=== PATIENT | female | born 1965 | race Caucasian/White ===

== ENCOUNTER 2019-11-28 16:15 | Emergency (ER) | payer OTHER, SELFPAY ==
--- NOTE | ~2019-11-28 | XR_ITS ---
XR shoulder LT min 2V DATE: 11/28/2019 16:53 INDICATION: Left shoulder pain TECHNIQUE: 4 views COMPARISON: None FINDINGS: No fracture or dislocation, periosteal reaction or bone destruction or abnormal soft tissue calcification. If clinically, glenohumeral joints are intact. IMPRESSION: Negative left shoulder Reviewed, dictated and finalized at location A. IMPRESSION: Negative left shoulder
--- NOTE | 2019-11-28 16:22 | ECG_ITS ---
Measurements Intervals [place] Rate: 77 P: 76 [place]: 132 QRS: 82 QRSD: 113 T: 70 QT: 390 QTc: 442 Interpretive Statements SINUS RHYTHM WITH SINUS ARRHYTHMIA INCOMPLETE RIGHT BUNDLE BRANCH BLOCK BORDERLINE ECG Electronically Signed On 11-29-2019 7:20:40 CDT by Rico Lamas D.O.
[2019-11-28 16:37] VITALS: BP 152/98; PULSE 92; RESP 20; TEMP 37.3; O2SAT 98
--- NOTE | 2019-11-28 16:39 | ED.EXTPRO ---
HPI - Extremity Problem General Chief complaint: Extremity Problem,Nontraumatic Stated complaint: pain on left side Time Seen by Provider: 11/28/19 16:18 Source: patient Mode of arrival: ambulatory Limitations: no limitations History of Present Illness HPI Narrative: 54 year old female presents to urgent care with complaints of left shoulder pain and decreased ROM X 1 week. Patient denies injury. Patient reports that the pain does radiate in to her upper back at times. Patient reports that the pain is worse with movement, coughing or deep breathing. Patient has been taking OTC ALeve with minimal relief. Patient denies previous injury to shoulder. Patient denies chest pains, SOB, numbness, tingling, headache, blurred vision or dizziness MD Complaint: extremity pain Onset (ago): week(s) (1) Pain Consistency: constant Location: left and upper extremity (shoulder) Quality: constant Radiation: none Relieving factors: nothing Exacerbating factors: range of motion Associated symptoms: denies other symptoms Related Data Home Medications Medication Instructions Recorded Confirmed alprazolam 1 mg DAILY 11/28/19 11/28/19 phentermine 37.5 mg DAILY 11/28/19 11/28/19 Allergies Allergy/AdvReac Type Severity Reaction Status Date / Time No Known Allergies Allergy Unknown NONE Verified 11/28/19 16:21 Review of Systems Review of Systems: All systems reviewed & are unremarkable except as noted in HPI and below Constitutional: Constitutional: Denies chills, Denies fatigue, Denies fever(s) and Denies weakness ENT: Denies dysphagia, Denies vertigo, Denies dizziness and Denies sore throat Cardiovascular: Cardiovascular: Denies chest pain, Denies rapid heart rate and Denies slow heart rate Respiratory: Respiratory: Denies cough, Denies dyspnea and Denies wheezing Gastrointestinal: Gastrointestinal: Denies abdominal pain, Denies diarrhea, Denies nausea and Denies vomiting Musculoskeletal: Musculoskeletal: Reports as per HPI Comments: left shoulder pain and decreased ROM Integumentary/Breasts: Skin/Breast: Denies rash Neurologic: Denies vertigo, Denies dizziness, Denies syncope and Denies focal weakness Endocrine: Endocrine: Denies fatigue PMFSH Social History Social History Gender identity (if verbalized by the patient): Female Exam Const: General: healthy appearing, no acute distress and alert Orientation/consciousness: patient oriented x3 Neck: Neck: normal visual inspection and no lymphadenopathy Resp: Effort & Inspection: normal respiratory effort, not labored and not tachypneic Auscultation: clear to auscultation bilaterally, no rhonchi and no wheezes Cardio: Rate: regular rate, not bradycardic and not tachycardic Rhythm: regular rhythm and regular rhythm Heart sounds: no murmurs Back/Spine/Pelvis: Back: no CVA tenderness Skin: General skin exam: normal color Rashes: no rashes Neuro: General: patient oriented x3, moves all extremities, no meningeal signs, no focal motor deficits and CN's II-XI intact bilaterally Speech: normal speech Gait exam (Neuro): Normal gait present Extrem: General: normal to inspection and no pedal edema Other: pain noted upon palpation to anterior and posterior left shoulder; decreased ROM noted on examination. Hand grasps equal and strong Psych: Mental Status: mental status grossly normal Affect: normal affect Attitude: cooperative Thought content: Yes Normal thought content present Course Vital Signs Vital signs: Vital Signs Temperature 37.3 C 11/28/19 16:37 Pulse Rate 92 11/28/19 16:37 Respiratory Rate 20 11/28/19 16:37 Blood Pressure 152/98 H 11/28/19 16:37 Pulse Oximetry 98 11/28/19 16:37 Temperature 37.3 C 11/28/19 16:37 Pulse Rate 92 11/28/19 16:37 Respiratory Rate 20 11/28/19 16:37 Blood Pressure 152/98 H 11/28/19 16:37 Pulse Oximetry 98 11/28/19 16:37 MDM - Extremity (Nontr
== END 2019-11-28 17:14 | disposition home or self-care (01) ==
PROVIDERS: Emergency Provider Nurse Practitioner Family; PCP Family Medicine
DX: M25.512 Pain in left shoulder (principal); I45.10 Unspecified right bundle-branch block
CPT/HCPCS: 73030; 93005; 99213; A4565; G0463

== ENCOUNTER 2020-11-27 14:53 | Emergency (ER) | payer SELFPAY ==
[2020-11-27 15:36] VITALS: BP 130/90; PULSE 97; RESP 18; TEMP 37.7; O2SAT 100
--- NOTE | 2020-11-27 16:33 | ED.EYEPROB ---
HPI - Eye Problem General Chief complaint: Eye Problems Stated complaint: eye problems Source: patient and RN notes reviewed Limitations: no limitations History of Present Illness HPI Narrative: The vaccinated patient, a [employer] employee, presents with flu-like symptoms. Patient states she has 1/2-week history of fever to 101.6, myalgias, resolving emesis x1/day followed by R >>L eye redness and discharge today. No photophobia, injury, foreign body, contact lens use ; no sputum changes, CP, wheezing/sneezing, loss of taste/smell, S OB. Symptoms are mild, worse upon awakening this morning, unrelieved with all amoxicillin she had from dental issues. Related Data Home Medications Medication Instructions Recorded Confirmed alprazolam 1 mg DAILY 11/28/19 11/28/19 phentermine 37.5 mg DAILY 11/28/19 11/28/19 Allergies Allergy/AdvReac Type Severity Reaction Status Date / Time No Known Allergies Allergy Unknown NONE Verified 11/28/19 16:21 Review of Systems Review of Systems: General/Constitutional: No weight loss, REPORTS fever Eyes: REPORTS: Redness,discharge Ears/Nose/Throat: No: Epistaxis,ear discharge Respiratory: Denies: Hemoptysis Gastrointestinal: No Vomiting, Bleeding-rectal Hematologic: Denies: Petechiae/Purpura PMFSH Social History Social History Gender identity (if verbalized by the patient): Female Comments At time of signature, agree with nursing past medical, surgical, social and family history. There is no relevant family history pertinent to the presenting complaint Exam Narrative: General Appearance: Well appearing, Well nourished EYE: PERRLA, Conjunctiva injected right greater than left ENT: Auditory canal normal, TM normal, Rhinorrhea, Mucousal erythema Mouth/Throat: MM moist, Uvula midline, Pharyngeal erythema , Supple, Respiratory: No respiratory distress, Breath sounds equal, Clear to auscultation Cardiovascular: RRR, No JVD Musculoskeletal: Non tender, Normal strength, Warm, Dry Neurological: A&O x3, Normal affect Course Vital Signs Vital signs: Vital Signs Temperature 99.9 F H 11/27/20 15:36 Pulse Rate 97 11/27/20 15:36 Respiratory Rate 18 11/27/20 15:36 Blood Pressure 130/90 11/27/20 15:36 Pulse Oximetry 100 11/27/20 15:36 Temperature 99.9 F H 11/27/20 15:36 Pulse Rate 97 11/27/20 15:36 Respiratory Rate 18 11/27/20 15:36 Blood Pressure 130/90 11/27/20 15:36 Pulse Oximetry 100 11/27/20 15:36 MDM - Eye Problem Lab Data Labs: Lab Results 11/27/20 Range/Units 15:46 POC SARS CoV-2 Ag Negative (Negative) Discharge Plan Discharge Clinical Impression: Influenza-like illness Patient Disposition: Home, Self-Care Condition: Stable Instructions: Conjunctivitis (ED) Additional Instructions: You may try OTC preparations for your nose like Flonase, for your eyes like Patanol ,or antihistamines like Claritin, etc. Prescriptions: New sulfacetamide sodium [Bleph-10] 10 % drops 2 drp EACH EYE Q4H Qty: 5 RF: 0 codeine-guaifenesin 10-100 mg/5 mL liquid 7.5 ml PO Q6H PRN (Reason: cough) Qty: 118 RF: 0 No Action alprazolam 1 mg tablet 1 mg DAILY RF: 0 phentermine 37.5 mg tablet 37.5 mg DAILY RF: 0 meloxicam 7.5 mg tablet 7.5 mg PO BID PRN (Reason: pain) Qty: 14 RF: 0 methocarbamol 500 mg tablet 500 mg PO TID PRN (Reason: pain) Qty: 20 RF: 0 Other Ambulatory Orders: SARS-CoV-2 RNA, Qual RT-PCR (Routine) Location: Determined by Patient Ordered By: Arpit Cutler Follow-up/Referrals: Nadine,Vanessa Hackett MD [Primary Care Provider] - Stand Alone Forms: Work/School Release IP
== END 2020-11-27 16:47 | disposition home or self-care (01) ==
PROVIDERS: Emergency Provider Emergency Medicine; PCP Family Medicine
DX: J11.1 Influenza due to unidentified influenza virus with other respiratory manifestations (principal); Z20.822 Contact with and (suspected) exposure to COVID-19
CPT/HCPCS: 87426; 99213; C9803; G0463

== ENCOUNTER → 2021-05-02 08:04 | Outpatient (CLI) | payer OTHER, SELFPAY ==
[2021-05-02 21:10] LABS: SARS-CoV-2 RNA PCR Positive
== END ==
PROVIDERS: PCP Family Medicine; Visit Provider Family Medicine
DX: U07.1 COVID-19 (principal)
CPT/HCPCS: C9803; U0003; U0005

== ENCOUNTER → 2021-06-26 01:58 | Outpatient (CLI) | payer OTHER, SELFPAY ==
[2021-06-26 11:59] LABS: SARS-CoV-2 RNA PCR Negative
== END ==
PROVIDERS: PCP Family Medicine; Visit Provider Family Medicine
DX: R43.2 Parageusia (principal); Z20.822 Contact with and (suspected) exposure to COVID-19
CPT/HCPCS: C9803; U0003; U0005

== ENCOUNTER 2024-02-18 06:54 | Emergency (ER) | payer OTHER, SELFPAY ==
[2024-02-18 07:01] VITALS: BP 132/82; PULSE 111; RESP 15; TEMP 36.6; O2SAT 98
[2024-02-18] MEDS: diazePAM INJ (*CRX) 10 MG/2 ML SYRINGE 2.5 MG IM (07:43)
[2024-02-18] MEDS: KETOROLAC 30 MG/ML VIAL (*BKC) 15 MG IM (07:43)
[2024-02-18] MEDS: predniSONE 20 MG TABLET 40 MG PO (07:44)
--- NOTE | 2024-02-18 07:53 | ED.LOWEXIN ---
HPI - Extremity Injury (Lower) General Chief Complaint: Extremity Injury, Lower Stated Complaint: R leg pain/previous fx Time Seen by Provider: 02/18/24 07:00 History of Present Illness HPI Narrative: Patient had an ankle injury about 2 months ago and has seen orthopedic surgeon, however she has had back pain to her ankle ever since and now it is radiating up to her buttock, has tried prescribed Vicodin from her doctor without much pain relief. She is still having mostly spasms. Is scheduled with pain specialist and physical therapy. Related Data Home Medications Medication Instructions Recorded Confirmed alprazolam 1 mg tablet 1 mg DAILY 11/28/19 11/28/19 phentermine 37.5 mg tablet 37.5 mg DAILY 11/28/19 11/28/19 Allergies Allergy/AdvReac Type Severity Reaction Status Date / Time No Known Allergies Allergy Unknown NONE Verified 02/18/24 07:06 Review of Systems Review of Systems: All systems reviewed & are unremarkable except as noted in HPI and below PMFSH Social History Social History Gender identity (if verbalized by the patient): Female Exam Narrative: EXAMINATION OF ORGAN SYSTEMS/BODY AREAS: Constitutional: Vital signs per nursing GENERAL: Sad HEAD: Normal with no signs of head trauma. EYES: EOMI, conjunctiva normal ENT: Hearing grossly intact LUNGS: Nonlabored breathing. HEART: normal DP pulse ABD: [Soft], [nontender to palpation] EXT: Normal range of motion; no obvious deformity SKIN: [No rashes or lesions.] NEURO: [Alert and oriented x 3. No gross focal sensory or strength deficits.] PSYCH: Normal affect Course Vital Signs Vital signs: Vital Signs Temperature 98 F 02/18/24 07:01 Pulse Rate 111 H 02/18/24 07:01 Respiratory Rate 15 02/18/24 07:01 Blood Pressure 132/82 02/18/24 07:01 Pulse Oximetry 98 02/18/24 07:01 Oxygen Delivery Room Air 02/18/24 07:01 Temperature 98 F 02/18/24 07:01 Pulse Rate 111 H 02/18/24 07:01 Respiratory Rate 15 02/18/24 07:01 Blood Pressure 132/82 02/18/24 07:01 Pulse Oximetry 98 02/18/24 07:01 Oxygen Delivery Room Air 02/18/24 07:01 MDM - Extremity Injury (Lower) MDM Narrative Medical decision making narrative: Patient had an ankle injury about 2 months ago and has seen orthopedic surgeon, however she has had back pain to her ankle ever since and now it is radiating up to her buttock, has tried prescribed Vicodin from her doctor without much pain relief. She is still having mostly spasms. Is scheduled with pain specialist and physical therapy. on exam patient is intermittently tearful, she has normal range of motion of the entire leg, no obvious deformity, she is neurovascularly intact, she is already on narcotics without improvement so I will trial some Toradol here, muscle relaxant /Valium, steroids, and have her follow-up with her doctor on a steroid course patient agreeable to this plan. She had been having some nausea and some cane from taking some medications so I will give her some prescriptions for Zofran and Pepcid. Return precautions discussed. Patient agreeable to this plan. Discharge Plan Discharge Clinical Impression: Leg muscle spasm Patient Disposition: Home, Self-Care Condition: Stable Instructions: Leg Pain (ED) Additional Instructions: Please follow up with your doctor; you can always return for any further issues. Prescriptions: New prednisone 20 mg tablet 40 mg PO DAILY 5 Days Qty: 10 0RF famotidine 20 mg tablet 20 mg PO DAILY Qty: 30 0RF ondansetron 4 mg tablet,disintegrating 4 mg PO Q8H PRN (Reason: nausea and vomiting) Qty: 10 0RF No Action alprazolam 1 mg tablet 1 mg DAILY phentermine 37.5 mg tablet 37.5 mg DAILY meloxicam 7.5 mg tablet 7.5 mg PO BID PRN (Reason: pain) Qty: 14 0RF methocarbamol 500 mg tablet 500 mg PO TID PRN (Reason: pain) Qty: 20 0RF sulfacetamide sodium [Bleph-10] 10 % drops 2 drp EACH EYE Q4H Qty: 5 0RF codeine-guaifenesin 10-100 mg/5 mL liquid 7.5 ml PO Q6H PRN (Reason: cough) Qty: 118 0RF Follow-up/Referrals: Nadine,Vanessa Hackett MD [Non-Staff] -
[2024-02-18 07:58] VITALS: BP 117/64; PULSE 78; RESP 16; O2SAT 99
== END 2024-02-18 08:02 | disposition home or self-care (01) ==
LOC: ANHED 07:48
PROVIDERS: Emergency Provider Emergency Medicine
DX: M62.838 Other muscle spasm (principal)
CPT/HCPCS: 96372; 99284; J1885; J3360; J7512

== ENCOUNTER 2024-04-12 15:58 | Emergency (ER) | payer OTHER, SELFPAY ==
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
[2024-04-12 16:33] VITALS: BP 139/84; PULSE 106; RESP 20; TEMP 36.6; O2SAT 99
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
[2024-04-12] MEDS: CYCLOBENZAPRINE HCL 5 MG TABLET PO (16:45)
[2024-04-12] MEDS: HYDROcodone/acetaminophen (*CRX) 5-325 MG TABLET 1 TAB PO (18:42)
[2024-04-12 19:37] VITALS: BP 134/74; PULSE 96; RESP 15; TEMP 36.7; O2SAT 100
== END 2024-04-12 19:38 | disposition home or self-care (01) ==
LOC: ANHED 19:09
PROVIDERS: Emergency Provider Physician Assistant
DX: S09.90XA Unspecified injury of head, initial encounter (principal); S16.1XXA Strain of muscle, fascia and tendon at neck level, initial encounter; M51.369 Other intervertebral disc degeneration, lumbar region without mention of lumbar back pain or lower extremity pain; M50.31 Other cervical disc degeneration, high cervical region; Y04.2XXA Assault by strike against or bumped into by another person, initial encounter
CPT/HCPCS: 70450; 72125; 72128; 72131; 99284; A9270

== ENCOUNTER 2024-05-13 14:01 | Outpatient (CLI) | payer OTHER, SELFPAY ==
--- NOTE | ~2024-05-13 | XR_ITS ---
EXAMINATION: XR chest 2V 05/13/2024 14:18 INDICATION: Cough PROCEDURE: 2 view chest COMPARISON: No prior studies for comparison. FINDINGS: The lungs are clear. The cardiomediastinal silhouette is within normal limits. There are no pleural effusions. There is no pneumothorax suspected. IMPRESSION: 1: NO ACUTE CARDIOPULMONARY DISEASE. Reviewed, dictated and finalized at location A. R TRANSPORT SYSTEMS SPECIALIST
--- OUTSIDE RECORDS SUMMARY | 2024-05-13 14:46 | XMS_ITS | Continuity of Care Document ---
Author Organization [facility], [facility] Address [address] [place] [id number] Care Team Providers Care Yeast Tender Name Role Phone VICENTE CEJA Primary Care Provider [phone] VICENTE CEJA Referring Provider JOSE ANTONIO ZHU Drop Wirer Unavailable Assessment No assessment recorded. Plan of Treatment Reminders Order Date Submit Date Provider Last Modified By Organization Details Last Modified Time Details Appointments Sick/Acut e 2024 11:30A M INÉS Powers Not available Not available Not available Follow Up 30 2024 02:00P M SHEILA Ruiz Not available Not available Not available New Patient 15 2024 03:30P M Dung Solitario DPM Not available Not available Not available Lab rapid flu (A+B) 2024 025 IGNACIO [facility], [address] [facility], [place], [address], 05/13/2024 13:50:23 Referral None recorded. Procedures None recorded. Surgeries None recorded. Imaging XR, chest, 2 view [address] [facility], [facility] [address], [place], [address], 05/13/2024 14:55:35 Medication Orders triamcino lone acetonide 40 mg/mL suspensio n for injection 2024 025 Not available 05/13/2024 15:06:01 Patient TargetsNo targets recorded. Patient InstructionsNo instructions recorded. Reason for Referral None Reported. Results Created Date Observation Date Name Description Value Unit Range Abnormal Flag Note LastModifiedBy Organization Detail LastModifiedTime 05/13/19 25 05/13/2024 rapid flu (A+B) Flu A negati ve Not Available [facility] [address], [place], [address], 05/13/2024 13:05:28 Result Notes None recorded. Problems Name Problem SNOMED Code Status Onset Date Resolution Date Notes Provider Name and Address Organization Details Recorded Time Acute sinusitis 43781655 Active Not Available [facility] 3 02:17:10 Pain in toe 038090029 Active 2021 Not Available [facility] 3 02:17:10 Foot pain 46868357 Active pins SHEILA Ruiz [address], [place], [address] , [employer] 4 09:58:45 Anxiety 38105273 Active Not Available [facility] 3 02:17:10 Joint pain 89983634 Active Not Available [facility] 3 02:17:10 Skin lesion 83154245 Active Not Available [facility] 3 02:17:10 Overweigh t 057555905 Active 2022 Not Available [facility] 3 02:17:10 Diarrhea 54586900 Active 2022 Not Available [facility] 3 02:17:10 Cervical radiculop athy 21735904 Active 2022 Not Available [facility] 3 02:17:10 Carpal tunnel syndrome of right wrist 23776338262 9108 Active 2022 Not Available [facility] 3 02:17:10 Tendiniti s of right wrist region 49007480584 162482 Active 2023 SHEILA Ruiz [address], [place], [address] , [employer] 4 12:18:33 Intervert ebral disc prolapse 37447351 Active 2023 cervical C6-7 osteophyt e bulge C5-6 SHEILA Ruiz [address], [place], [address] , [place] [facility] 4 10:21:46 Neck pain 35630321 Active 2023 Rubia Garcia RN null, [place] [facility] 4 16:53:37 Contact dermatiti s of neck Active 2023 SHEILA Ruiz [address], [place], [address] , [facility] 4 14:32:36 Generaliz ed acute body pains 888046179 Active 2023 Emmanuelle Arora RN null, [place] [facility] 4 11:42:41 Upper respirato ry infection 70194804 Active 2023 SHEILA Ruiz [address], [place], [address] , [facility] 4 11:45:41 Otitis media 93124614 Active 2023 SHEILA Ruiz [address], [place], [address] , [facility] 4 11:55:43 Pain of right ankle joint 23296970883 772363 Active 2023 ALESIA Poe null, [place] [facility] 4 15:30:16 Chronic urticaria 32470758 Active 2023 SHEILA Ruiz [address], [place], [address] , [facility] 4 12:38:44 Closed fracture of right fibula [id number] 667194 Active 2023 SHEILA Ruiz [address], [place], [address] , [facility] [employer] [facility] 4 15:55:38 Eczema 70682863 Active 2023 SHEILA Ruiz [address] [facility] [place] [address], [place], [address] , [facility] [employer] [facility] 4 16:12:33 Ankle pain 283767677 Active 2024 SHEILA Ruiz [address] [facility] [facility] [address], [place], [address] , [facility] [employer] [facility] 5 15:57:05 Cough 36595771 Active 2024 INÉS Powers [address] [facility], [place] [address], [place], [address] , [facility] [employer] [facility] 5 13:05:17 Problem Notes None recorded. Procedures Surgical History Date Name Laterality Status Provider Name and Address Organization Details Recorded Time Cardiac Cath completed ALESIA Poe [facility] [employer] [facility] 01/21/2024 15:27:49 section completed ALESIA Poe [facility] 01/21/2024 15:28:01 Imaging Results None recorded. Procedure Notes None recorded. Medical Equipment None Reported. Allergies No known drug allergies Medications Name Sig Start Date Stop Date Status Note LastModified by Organization Details LastModified Time binaxnow covid-19 ag card home test kit 07/17 completed Not Available Not Available Not Available celecoxib 200 mg capsule active Not Available Not Available Not Available cyclobenz aprine 10 mg tablet TAKE 1 TABLET BY MOUTH EVERY DAY AT BEDTIME active Not Available Not Available No t Available methocarb colin 500 mg tablet 03/14 completed Not Available Not Available Not Available promethaz ine-DM 6.25 mg-15 mg/5 mL oral syrup TAKE 5 ML BY MOUTH EVERY 4 HOURS FOR 10 DAYS NEEDED 01/20 completed Not Available Not Available Not Available prednison e 10 mg tablet take 2 tabs po twice daily for 2 days , 1 tab twice dialy for 5 days , 0.5 tab twice daily for 2 days , 0.5 tab for 1 day . TAKE 2ND DOSE EVERY DAY AT NOON. a 10 day course 11/30 completed Not Available Not Available Not Available azithromy donita 250 mg tablet TAKE 2 TABLETS BY MOUTH FOR 1 DAY THEN TAKE 1 TABLET BY MOUTH DAILY FOR 4 DAYS 12/28 completed Not Available Not Available Not Available alprazola m 1 mg tablet TAKE 1 TO 2 TABLETS BY MOUTH DAILY NEEDED active Not Available Not Available No t Available fluconazo le 150 mg tablet TAKE 1 TABLET BY MOUTH EVERY 72 HOURS FOR 9 DAYS 01/20 completed Not Available Not Available Not Available hydrocodo ne 5 mg-acetam inophen 325 mg tablet Take 1 tablet 3 times a day by oral route as needed for 30 days. 2024 active Not Available Not Available Not Avai lable meloxicam 15 mg tablet Take 1 tablet every day by oral route. 01/19 completed Not Available Not Available Not Available ondansetr on HCl 4 mg tablet 02/19 completed Not Available Not Available Not Available prednison e 20 mg tablet TAKE 2 TABLETS BY MOUTH TWICE DAILY X 2 DAYS, 1 TABLET TWICE DAILY X 5 DAYS, 1/2 TABLET TWICE DAILY X 2 DAYS, THEN 1/2 TABLET DAILY X 1 DAY active Not Available Not Available No t Available penicilli n V potassium 500 mg tablet active Not Available Not Available Not Available phentermi ne 37.5 mg tablet TAKE 1 TABLET BY MOUTH EVERY MORNING 2024 active Not Available Not Available Not Avai lable acetamino phen 300 mg-codein e 30 mg tablet TK ONE T PO Q 6 H PRF PAIN 02/19 completed Not Available Not Available Not Available acyclovir 400 mg tablet active Not Available Not Available Not Available tramadol 50 mg tablet TAKE 1 TABLET BY MOUTH THREE TIMES DAILY NEEDED FOR PAIN 04/20 completed not helping Not Available Not Available Not Available Depo-Medr ol 80 mg/mL suspensio n for injection Take 1 mL by injectio n route. 01/20 completed Not Available Not Available Not Available meloxicam 7.5 mg tablet 03/14 completed Not Available Not Available Not Available oxycodone -acetamin ophen 5 mg-325 mg tablet 02/19 completed Not Available Not Available Not Available Tessalon Perles 100 mg capsule Take 1 capsule 3 times a day by oral route. active Not Available Not Available No t Available alprazola m 0.5 mg tablet TAKE 1-2 TABLETS BY MOUTH TWICE DAILY NEEDED active Not Available Not Available No t Available amoxicill in 875 mg tablet Take 1 tablet every 12 hours by oral route. 07/17 completed Not Available Not Available Not Available famotidin e 20 mg tablet 05/13 completed Not Available Not Available Not Available methocarb colin 750 mg tablet active Not Available Not Available No t Available aspirin 325 mg tablet,de layed release 02/19 completed Not Available Not Available Not Available ropinirol e 0.25 mg tablet 1 tab po at bedtime 7 days , 2 tabs at bedtime for 7 days , 3 tabs at bedtime and maintain 05/13 completed Not Available Not Available Not Available sulfaceta mide sodium 10 % eye drops INSTILL 2 DROPS IN EACH EYE EVERY 4 HOURS 12/28 completed Not Available Not Available Not Available triamcino lone acetonide 40 mg/mL suspensio n for injection Take 1.5 mL every day by injectio n route as directed for 1 day. 2024 active Not Available Not Available Not Avai lable codeine 10 mg-guaife nesin 100 mg/5 mL oral liquid TAKE 7.5 ML BY MOUTH EVERY 6 HOURS NEEDED FOR COUGH 08/01 completed Not Available Not Available Not Available gabapenti n 100 mg capsule TK 3 CS PO TID 02/19 completed Not Available Not Available Not Available clobetaso l 0.05 % topical ointment APPLY A THIN LAYER TO THE AFFECTED AREA(S) BY TOPICAL ROUTE 2 TIMES PER DAY active Not Available Not Available No t Available levofloxa donita 500 mg tablet Take 1 tablet every 24 hours by oral route for 10 days. 07/17 completed Not Available Not Available Not Available oxycodone -acetamin ophen 7.5 mg-325 mg tablet TK 1 T PO Q 6 H PRN P 03/14 completed Not Available Not Available Not Available methylpre dnisolone 4 mg tablets in a dose pack FOLLOW PACKAGE DIRECTIO NS 12/28 completed Not Available Not Available Not Available albuterol sulfate HFA 90 mcg/actua tion aerosol inhaler INHALE 2 PUFFS BY MOUTH FOUR TIMES DAILY NEEDED 01/19 completed Not Available Not Available Not Available amoxicill in 875 mg-potass ium clavulana te 125 mg tablet TAKE 1 TABLET BY MOUTH EVERY 12 HOURS 01/20 completed Not Available Not Available Not Available tobramyci n 0.3 %-dexamet hasone 0.1 % eye drops,niki pension INSTILL 1 DROP INTO LEFT EYE FOUR TIMES DAILY FOR 7 DAYS 05/13 completed Not Available Not Available Not Available Benadryl Allergy 25 mg tablet Take 1 tablet every day by oral route at bedtime for 30 days. 01/20 completed Not Available Not Available Not Available bupropion HCl SR 200 mg tablet,12 hr sustained -release active Not Available Not Available Not Available escitalop lonny 10 mg tablet TK 1 T PO QD 03/14 completed Not Available Not Available Not Available cyclobenz aprine 5 mg tablet TAKE 1 TABLET BY MOUTH EVERY DAY AT BEDTIME 07/10 completed increase d to 10 mg Not Available Not Available Not Available diclofena c 1 % topical gel APPLY 2 GRAMS TO THE top of the left foot BY TOPICAL ROUTE 3 TIMES PER DAY 03/14 completed Not Available Not Available Not Available Flucelvax Quad 2606-1909 (PF) 60 mcg (15 mcg x 4)/0.5 mL IM syringe ADM 0.5ML IM UTD 02/19 completed Not Available Not Available Not Available Flucelvax Quad (PF) 60 mcg (15 mcg x 4)/0.5 mL IM syringe active Not Available Not Available Not Available Vitals Date Recorded Body height Body mass index (BMI) Body weight Body temperature Heart rate Respiratory rate Oxygen saturation Oxygen saturation in Arterial blood by Pulse oximetry Systolic blood pressure Diastolic blood pressure Provider Name and Address Organization Details Last Updated DateTime 5 157.48 cm 23.6 kg/m2 98170.4 7 g 98.2 [degF] 100 /min 24 /min 99 % 99 % 120 mm[Hg] 90 mm[Hg] Yary Ervin RN [facility] [employer] 12:42:18 Social History Question Answer Notes LastModified by Organizat ion Details LastModified Time Tobacco Smoking Status Never Smoker Yary Ervin RN null, [facility] [employer] 05/13/2024 12:42:57 What Is Your Level Of Alcohol Consumption? None Information not available 05/13/2024 What Is Your Level Of Caffeine Consumption? Occasional Information not available 05/13/2024 In The 14 Days Before Symptom Onset, Have You Had Close Contact With A Laboratory-confir med COVID-19 While That Case Was Ill? No Information not available 05/13/2024 In The 14 Days Before Symptom Onset, Have You Had Close Contact With A Person Who Is Under Investigation For COVID-19 While That Person Was Ill? No Information not available 05/13/2024 Are You Currently Employed? Yes Information not available 05/13/2024 What Type Of Diet Are You Following? REGULAR Information not available 05/13/2024 Have There Been Any Changes To Your Family Or Social Situation? No Information no t available 05/13/2024 Where Do You Live? Other Duplex Information not available 05/13/2024 Do You Have Any Pets? No Information not available 05/13/2024 Do You Use Your Seat Belt Or Car Seat Routinely? Yes Information not available 05/13/2024 Do You Have Smoke And Carbon Monoxide Detectors In Your Home? Yes Information not available 05/13/2024 Are You Passively Exposed To Smoke? No Information no t available 05/13/2024 Are There Any Smokers In Your House? No Information not available 05/13/2024 Do You Participate In Social Media? Yes Information not available 05/13/2024 Do You Feel Stressed (tense, Restless, Nervous, Or Anxious, Or Unable To Sleep At Night)? [id number] Information not available 05/13/2024 Have You Recently Traveled Abroad? No Information not available 05/13/2024 Sex: Unknown Functional Status None recorded. Mental Status None recorded. Family History Relationship Description Onset Age of this Age Resolved Age Notes LastModified by Organization Details LastModified Time Father Heart disease [email or web address] Not available 2023 15:26:16 Father Family history of stroke Not available 2023 15:26:28 Father History of malignant neoplasm [email or web address] Not available 2023 15:26:48 Father Hypertensive disorder Not available 2023 15:26:58 Daughter Diabetes mellitus [email or web address] Not available 2023 15:27:06 Medical History Condition Response HEART ARRHYTHMIA Y Gynecological HistoryNo gynecological history recorded. Obstetrics History GPAL:G 0 P 0 0 0 0 Immunizations Vaccine Type Date Status Note Provider Nam e and Address Organization Details Recorded Time SARS-COV-2 (COVID-19) vaccine, UNSPECIFIED 09/06/2020 completed Yary Ervin [facility] 05/13/2024 12:37:15 Past Encounters Encounter ID Performer Location Encounter Start Date Encounter Closed Date Diagnosis/Indication Diagnosis SNOMED-CT Code Diagnosis ICD10 Code Diagnosis Note [id number] SHEILA Ruiz [facility] [address] [place] [address] 04/20/2024 15:32:02 04/20/2024 16:28:17 Cervical radiculopathy 71032428 M54.12 Pain of ri ght ankle joint 7113503895 6173025 M25.571 Generalize d acute body pains 028397067 R52 Interverte bral disc prolapse 92752804 M51.9 cervical [id number] INÉS Powers [facility] [address] [place] [address] 05/13/2024 12:28:36 05/13/2024 13:52:30 Cough 18370208 R05.9 Will discuss over the phone after XR results Health Concerns Section Related Observation LastModified by Organization Detai ls LastModified Time None Recorded Concern Status LastModified by Organization Details LastModified Time None Recorded Payers Encounter Date Sequence Insurance Name Policy Number Policy Lambert Covered Member ID Lambert Member ID Guarantor Name 05/13/2024 1 [id number] Virginia Pinto [id number] Virginia Pitno Notes Date Note Type Note Provider Name and Address Organization Details Recorded Time 05/13/2024 text/html Virginia Pinto is a 59 year old female patient of Stew Ceja here today for sickness For the past 4 days ago began feeling sick. Cough and body aches for the past 4 days. Fever and chills for the past 4 days. Vomiting for the first 2 days and hasn't been able to eat since. Can drink but can't handle food. She had diarrhea this morning. She noticed a sore throat this morning. She's been having a hard time breathing. She's had headaches too. SOB worse when laying down. She has bad muscle aches as well. It's a dry cough, no drainage from the nose. Yesterday she had a sore ear on the right side. She had ear infections 2 months ago. Ester Baltazar, MANAGER PRINTING [address] [facility] [place] [address], [place], [address], [facility] [email or web address] 05/13/2024 15:04:18 OBGyn Episode No OBEpisode recorded.
--- OUTSIDE RECORDS SUMMARY | 2024-05-13 14:46 | XMS_ITS | Clinical Summary ---
Author Organization [facility] [employer] Address [address] [place] [address] Care Team Providers Care Concrete Mixing Truck Driver Name Role Phone Vanessa Mccoy MD Primary Care Provider [phone] Source Comments [facility] [employer],non-owned Affiliates and Associated Physician Practices is amultiple site organization consisting of ambulatory clinics and hospital sitesin [place], [place], [place] and [place]. This disclosure is being madepursuant to the Care Everywhere program and may not contain all information available regarding this patient. Last updated 18.[facility] [employer] Allergies Active Allergy Reactions Criticality Noted Date Comments Tramadol Nausea and/or Vomiting 09/23/2019 Medications * Be aware that medications may not be up to date on this document. Alwaysverify current medications with the patient. Medication Sig Dispensed Refills Start Date End Date Status ALPRAZolam (XANAX) 1 MG tablet TK 1 TO 2 TS PO D UTD 0 10/22/2018 Active estradiol (ESTRACE) 0.5 MG tablet 10/06/2017 Active methocarbamol (ROBAXIN) 500 MG tablet 11/28/2019 Active meloxicam (MOBIC) 7.5 MG tabletIndications:Acu te pain of left shoulder,Neck pain on left side Take 1 tablet by mouth 2 times daily 60 tablet 11/29/2019 Active hydrOXYzine hcl (ATARAX) 50 MG tabletIndications:Anx iety,Pain,Sleep Take 1 tablet by mouth 3 times daily as needed Reasons: Feeling Anxious, Pain, Sleep 30 tablet 11/29/2019 Active Active Problems Problem Noted Date Diagnosed Date Osteoarthritis of left foot 11/06/2018 Acute post-operative pain 05/21/2018 Painful orthopaedic hardware 09/15/2017 Osteoarthritis 08/11/2015 Anxiety 03/08/2015 Depressive disorder 03/08/2015 Retained orthopedic hardware Toe pain, left Social History Tobacco Use Types Packs/Day Years Used Date Smoking Tobacco: Never Smokeless Tobacco: Never Alcohol Use Standard Drinks/Week Comments Yes 2 (1 standard drink = 0.6 oz pur e alcohol) Sex and Gender Information Value Date Recorded Sex Assigned at Not on file Gender Identity Not on file Sexual Orientation Not on file Last Filed Vital Signs Vital Sign Reading Time Taken Comments Blood Pressure 122/70 09/23/2019 12:45 PM CDT Pulse 54 09/23/2019 11:50 AM CDT Temperature 36.7 ??C (98 ??F) 09/23/2019 12:00 PM CDT Respiratory Rate 15 09/23/2019 11:50 AM CDT Oxygen Saturation 92% 09/23/2019 11:50 AM CDT Inhaled Oxygen Concentration - - Weight 57.2 kg (126 lb) 11/29/2019 11:33 AM CDT Height 157.5 cm (5' 2 ) 11/29/2019 11:33 AM CDT Body Mass Index 23.05 11/29/2019 11:33 AM CDT Plan of Treatment Health Maintenance Due Date Last Done Comments COLOGUARD (AGES 45-75) - COL ON CA SCREENING 1966 COLON MONITORING 1966 COLONOSCOPY - COLON CA SCREENING 1966 CT COLONOGRAPHY - COLON CA SCREENING 1966 Colorectal Cancer Screening 1966 FIT - COLON CA SCREENING 1966 FLEX SIG - COLON CA SCREENING 1966 LIPID TESTING 1966 MAMMOGRAM 1966 Opioid Medication Agreement - Annual 1966 HIV SCREENING 1981 HEPATITIS C SCREENING 03/30/1984 DTAP/TDAP/TD VACCINES (1 - Tdap) 1985 HEPATITIS B VACCINE (1 of 3 - 19+ 3-dose series) 1985 PAP with HPV 1996 PNEUMOCOCCAL VACCINE 50+ (1 of 1 - PCV) 2016 ZOSTER VACCINE (1 of 2) 2016 COVID-19 VACCINE (1 - 2023-2 5 season) 2023 INFLUENZA VACCINE (#1) 2023 DEPRESSION SCREENING 04/14/2024 HIB VACCINE Aged Out No longer eligi ble based on patient's age to complete this topic HPV VACCINE Aged Out No longer eligi ble based on patient's age to complete this topic MENINGOCOCCAL (Group B) VACCINE Aged Out No longer eligible based on patient's age to complete this topic MENINGOCOCCAL VACCINE Aged Out No eric christos eligible based on patient's age to complete this topic PNEUMOCOCCAL VACCINE Aged Out No long er eligible based on patient's age to complete this topic Medical Devices Explanted Type Area Under Sheriff Device Identifier Shelf Expiration Date Model / Serial / Lot Explanted Hardware- 10 Screws, 2 Plates, 1 Washer Explanted:Qty: 1 on 05/21/2018 by Slick Amanda DO at [facility] Left: Foot N/A / / Description:Explanted- 10 sc rews, 2 plates, 1 washer Advance Directives * Full Code (Latest Code Status on File) Date Activated Date Inactivated Comments 05/21/2018 7:10 AM 05/21/2018 9:16 PM Care Teams Concrete Mixing Truck Driver Relationship Specialty Start Date End Date Vanessa Mccoy MD [address] [place] [address] [address] [place] [id number] PCP - General Family Medicine 08/09/15
--- OUTSIDE RECORDS SUMMARY | 2024-05-13 14:46 | XMS_ITS | Patient Health Summary ---
Author Organization [facility] [employer] Address [address] [place] [address] Care Team Providers Care Acidizer Helper Name Role Phone Vanessa Mccoy MD Primary Care Provider [phone] Note from [facility],non-owned Affiliates and Associated Physician Practices is amultiple site organization consisting of ambulatory clinics and hospital sitesin [place], [place], [place] and [place]. This disclosure is being madepursuant to the Care Everywhere program and may not contain all information available regarding this patient. Last updated 18.[facility] Allergies * Tramadol(Nausea and/or Vomiting) Medications * Be aware that medications may not be up to date on this document. Alwaysverify current medications with the patient. 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 Press Operator [employer] Device Identifier Shelf Expiration Date Model / Serial / Lot Explanted Hardware- 10 Screws, 2 Plates, 1 Washer Explanted:Qty: 1 on 05/21/2018 by Slick Amanda DO at [facility] Left: Foot N/A / / Description:Explanted- 10 sc rews, 2 plates, 1 washer Procedures * LA DRAIN/INJECT LARGE JOINT/BURSA(Performed 11/29/2019) Performed for Acute pain of left shoulder * XR FOOT LEFT 3VW OR MORE(Performed 10/25/2019) Performed for Osteoarthritis of left foot, unspecified osteoarthritis type * PATHOLOGY TISSUE(Performed 09/23/2019) Performed for Toe pain, left * OPEN REDUCTION INTERNAL FIXATION (ORIF) TOE(Performed 09/23/2019) Performed for Toe pain, left * LARYNGEAL MASK AIRWAY(Performed 09/23/2019) * XR FOOT LEFT 3VW OR MORE(Performed 11/06/2018) Performed for Follow up * XR FOOT LEFT 3VW OR MORE(Performed 07/13/2018) Performed for S/P hardware removal * XR FOOT LEFT 3VW OR MORE(Performed 06/26/2018) Performed for Painful orthopaedic hardware (HCC) * XR PELVIS 1 OR 2VW(Performed 06/05/2018) Performed for Hip pain, acute, right * FL SABAS SURGERY(Performed 05/21/2018) Performed for Painful orthopaedic hardware (HCC) * PATHOLOGY TISSUE(Performed 05/21/2018) Performed for Retained orthopedic hardware, Ingrowing nail * REMOVAL/REPAIR NAIL BED/PLATE/MATRIX (TOENAIL)(Performed 05/21/2018) Performed for Retained orthopedic hardware, Ingrowing nail * LARYNGEAL MASK AIRWAY(Performed 05/21/2018) * PERIPHERAL BLOCK(Performed 05/21/2018) * BASIC METABOLIC PANEL (CALCIUM TOTAL)(Performed 05/21/2018) Performed for Painful orthopaedic hardware (HCC) * CBC W/O DIFFERENTIAL(Performed 05/21/2018) Performed for Painful orthopaedic hardware (HCC) * XR FOOT LEFT 3VW OR MORE(Performed 04/24/2018) Performed for Left foot pain * XR FOOT LEFT 3VW OR MORE(Performed 09/15/2017) Performed for Osteoarthritis of left foot, unspecified osteoarthritis type * XR FOOT LEFT 3VW OR MORE(Performed 11/04/2016) * XR FOOT LEFT 3VW OR MORE(Performed 04/01/2016) * XR FOOT LEFT 3VW OR MORE(Performed 02/19/2016) * XR FOOT LEFT 3VW OR MORE(Performed 01/15/2016) * COMPREHENSIVE METABOLIC PANEL(Performed 01/03/2016) * CBC W AUTO DIFFERENTIAL(Performed 01/02/2016) * CBC W AUTO DIFFERENTIAL(Performed 01/02/2016) * XR FOOT LEFT 3VW OR MORE(Performed 01/02/2016) * FL SABAS SURGERY(Performed 01/02/2016) * XR FOOT LEFT 3VW OR MORE(Performed 12/22/2015) Performed for Left foot pain * XR FOOT LEFT 3VW OR MORE(Performed 08/11/2015) Performed for Foot pain, left * XR FOOT LEFT 3VW OR MORE(Performed 06/09/2015) Performed for Left foot pain Results * LA DRAIN/INJECT LARGE JOINT/BURSA (11/29/2019 5:45 PM CDT) Narrative Levy Sinha DO - 11/29/2019 5:45 PM CDT Levy Sinha, DO ? 11/29/2019 ??5:45 PM Orthopaedic Surgery Procedure Note Diagnosis: Left shoulder pain, rotator cuff tendonitis Procedure: Injection of corticosteroid into the left subacromial space Indications: Virginia Pinto is a 54 year old female who has left shoulder pain Procedure Details: The patient was informed of her condition, and the potential benefits of injection of steroid. The patient was counseled as to the risks of the procedure and allergies were reviewed. The patient was understanding and agreeable. ?? The patient was placed into the appropriate position. The area was prepped with betadine and alcohol. Utilizing the posterolateral shoulder portal and a 22ga needle, 2 cc of Kenalog/4cc lidocaine was injected into the subacromial space. The needle was removed and the needle site cleaned with alcohol and dressed with a sterile bandage. The procedure was performed under sterile conditions. ??The patient tolerated the procedure well. Remainder of plan per note. 11/29/2019 5:45 PM Levy Sinha DO PROCEDURE/MINOR SURG ICAL ORDERABLES * XR FOOT LEFT 3VW OR MORE (10/25/2019 10:44 AM CDT) Only the most recent of14 resultswithin the time period is included. Anatomical Region Laterality Modality Ankle / Foot Radiographic Estrella ging 10/25/2019 10:4 9 AM CDT Impressions 10/25/2019 11:38 AM CDT IMPRESSION: 1. Postsurgical changes of left mid foot arthrodesis without interval change. Dictated by Sarah Mayers MD (university president). I, Dr. PAULINE ZAMORA have personally reviewed and interpreted this examination/study. This report was electronically signed by PAULINE ZAMORA ??on 10/25/2019 11:38 AM . Narrative 10/25/2019 11:38 AM CDT EXAMINATION: XR FOOT LEFT 3VW HISTORY: M19.072: Osteoarthritis of left foot, unspecified osteoarthritis type COMPARISON: Foot radiograph dated 07/13/2018 FINDINGS: There are postsurgical changes of instrumented midfoot arthrodesis without change. Multiple screw fragments and a screw traversing the cuneiforms are unchanged. The bony fusion appearance is unchanged. No fractures or dislocations are identified. The other joint spaces are preserved. Bone density and texture are normal. Procedure Note Pauline Zamora MD - 10/25/2019 EXAMINATION: XR FOOT LEFT 3VW HISTORY: M19.072: Osteoarthritis of left foot, unspecifiedosteoarthritis type COMPARISON: Foot radiograph dated 07/13/2018 FINDINGS: There are postsurgical changes of instrumented midfoot arthrodesiswithout change. Multiple screw fragments and a screw traversing the cuneiformsare unchanged. The bony fusion appearance is unchanged. No fractures or dislocations are identified. The other joint spaces are preserved. Bone density and texture are normal. IMPRESSION: 1. Postsurgical changes of left mid foot arthrodesis without interval change. Dictated by Sarah Mayers MD (university president). I, Dr. PAULINE ZAMORA have personally reviewed and interpreted this examination/study. This report was electronically signed by PAULINE ZAMORA on 10/25/2019 11:38 AM . Slick Amanda DO DIAGNOSTIC IMAGING O RDERABLES * PATHOLOGY TISSUE (09/23/2019 10:17 AM CDT) Only the most recent of2 resultswithin the time period is included. Case Report Surgical Pathology Report ? Case: [id number] ? Authorizing Provider: ??Slick Amanda, DO ?Collected: ? 09/23/2019 10:17 AM ? Ordering Location: ? [facility] ? Received: ?09/23/2019 12:25 PM ? Pathologist: ? Yary Fernando MD ? Specimen: ?Nerve, Left fourth toe-medial digital nerve ? 09/24/2019 1:18 PM [facility] Final Diagnosis Nerve, left fourth toe medial digital nerve, excision (A): - Benign peripheral nerve 09/24/2019 1:18 PM [facility] Microscopic Description and Comment Sections show a largely unremarkable small peripheral nerve; there is no inflammation, though the perineurium is somewhat prominent around the fascicles. (DC/ED) 09/24/2019 1:18 PM [facility] Clinical History The patient is a 54 year old woman with left 4th toe pain. Operative procedure: left medial 4th toe digital neurectomy, medial wedge resection. 09/24/2019 1:18 PM [facility] Gross Description The requisition and specimen(s) are labeled with the patient's name, Virginia Pinto. Received in formalin, specimen A , is a marin white tissue core measuring 1.1 x 0.1 x 0.1 cm. Submitted in toto in cassette A1. KK 09/24/2019 1:18 PM [facility] Disclaimer The performance characteristics of all immunohistochemical and indirect immunofluorescence stains (if any) cited in this report were determined by the Histopathology Laboratory of [facility]. Some of these tests were developed by our own laboratory and have not been cleared or approved by the US Food and Drug Administration. The FDA does not require this test to go through premarket FDA review. These tests are used for clinical purposes. They should not be regarded as investigational or for research. This laboratory is certified under the Clinical Laboratory Improvement Amendments (CLIA) as qualified to perform high complexity clinical laboratory testing. This case has been personally reviewed and interpreted by the attending (teaching) pathologist. 09/24/2019 1:18 PM [facility] Embedded Images 09/24/2019 1:18 PM [facility] Biopsy, NOS ENTIRE NERVE / Unknown 09/23/2019 10:17 AM CDT 09/23/2019 12:25 PM CDT Comment:Pre-op diagnosis: LEFT TOE PAIN Slick Amanda DO LAB - PATHOLOGY/CYTO LOGY ORDERABLES [facility] [address] [place] [address], [place] [phone] * LARYNGEAL MASK AIRWAY (09/23/2019 9:53 AM CDT) Narrative Carolann Sheikh APRN-CRNA - 09/23/2019 9:53 AM CDT Carolann Sheikh APRN-CRNA ? 09/23/2019 ??9:54 AM LMA Placement Procedure/LDA Note: Patient Location: OR. LMA Insertion Date/Time: ??09/23/2019 9:42 AM Procedure: LMA. Pretreatment: 100% O2 Induction: standard IV Mask Ventilation: easy Type: ??LMA Size: ??4 Number of Attempts: 1. Placement verified by: direct visualization, bilateral breath sounds, chest auscultation and CO2 monitor Procedure Start Time: 09/23/2019 9:42 AM. Staff Section ?? Anesthesia Provider: Carolann Sheikh APRN-CRNA, Performed the procedure Provider #1: Sofia [place] MD. Sofia [place] MD GENERAL ANESTHESIA O RDERABLES * XR PELVIS 1 OR 2VW (06/05/2018 10:45 AM FRUIT GRADER) Anatomical Region Laterality Modality Pelvis Radiographic Estrella ging 06/05/2018 10:5 1 AM FRUIT GRADER Impressions 06/05/2018 10:51 AM FRUIT GRADER Normal joint spaces of the hips. Reading Radiologist: Isael Hicks MD on 06/05/2018 at 10:51 AM Narrative 06/05/2018 10:51 AM FRUIT GRADER Examination: Pelvis one or 2 views History: Hip pain Findings: An AP view of the pelvis was performed without prior comparison. The hip joint spaces are normal. There is no acute fracture of the pelvis. Procedure Note Isael Hicks MD - 06/05/2018 Examination: Pelvis one or 2 views History: Hip pain Findings: An AP view of the pelvis was performed without prior comparison. The hip joint spaces are normal. There is no acute fracture of the pelvis. IMPRESSION Normal joint spaces of the hips. Reading Radiologist: Isael Hicks MD on 06/05/2018 at 10:51 AM Humberto Noel MD DIAGNOSTIC IMAGING O RDERABLES * FL SABAS SURGERY (05/21/2018 6:00 PM FRUIT GRADER) Only the most recent of2 resultswithin the time period is included. Narrative [facility] - 05/21/2018 7:20 PM FRUIT GRADER Fluoroscopy was used for this exam in the OR. Please see the Operative report. Slick Amanda DO FLUOROSCOPY ORDERABL ES [facility] * (ABNORMAL) CBC W/O DIFFERENTIAL (05/21/2018 10:45 AM FRUIT GRADER) WBC 8.4 3.5 - 10.5 10? 3 /uL 05/21/2018 11:00 AM [facility] RBC 4.95 3.90 - 5.00 10? 6 /uL 05/21/2018 11:00 AM [facility] Hemoglobin 14.9 12.0 - 15.5 g/dL 05/21/2018 11:00 AM [facility] Hematocrit 45.6(H) 35.0 - 45.0 % 05/21/2018 11:00 AM [facility] MCV 92.1 81.0 - 97.0 fL 05/21/2018 11:00 AM [facility] MCH 30.1 28.0 - 34.0 pg 05/21/2018 11:00 AM [facility] MCHC 32.7 32.0 - 36.0 g/dL 05/21/2018 11:00 AM [facility] Platelet Count 292 150 - 400 10? 3 /uL 05/21/2018 11:00 AM [facility] RDW-SD 39.9 36.0 - 50.0 fL 05/21/2018 11:00 AM [facility] RDW-CV 11.8 11.2 - 14.8 % 05/21/2018 11:00 AM [facility] MPV 10.3 9.3 - 12.8 fL 05/21/2018 11:00 AM [facility] nRBC Absolute 0.00 0 10? 3 /uL 05/21/2018 11:00 AM [facility] nRBC Auto 0.0 0 /100 WBC 05/21/2018 11:00 AM [facility] Blood BLOOD SPECIMEN / Unknown Venipuncture / Unknown 05/21/2018 10:45 AM FRUIT GRADER 05/21/2018 10:51 AM FRUIT GRADER Harish Stauffer MD LAB - HEMATOLOGY ORD ERABLES [facility] [address] [phone] * (ABNORMAL) BASIC METABOLIC PANEL (CALCIUM TOTAL) (05/21/2018 10:45 AM FRUIT GRADER) BUN 17 7 - 26 mg/dL 05/21/2018 11:14 AM [facility] Creatinine 0.7 0.6 - 1.2 mg/dL 05/21/2018 11:14 AM [facility] Sodium 141 136 - 145 mmol/L 05/21/2018 11:14 AM [facility] Potassium 4.1 3.5 - 4.5 mmol/L 05/21/2018 11:14 AM [facility] Chloride 105 98 - 107 mmol/L 05/21/2018 11:14 AM [facility] CO2 25 22 - 29 mmol/L 05/21/2018 11:14 AM [facility] Glucose 103 70 - 115 mg/dL 05/21/2018 11:14 AM [facility] Calcium 9.9 8.4 - 10.2 mg/dL 05/21/2018 11:14 AM [facility] Anion Gap 15 8 - 18 05/21/2018 11:14 AM [facility] BUN/Creatinine Ratio 24(H) 7 - 23 05/21/2018 11:14 AM [facility] Osmolality Calculated 294 270 - 300 mOsm/kg 05/21/2018 11:14 AM [facility] eGFR >60 >60 mL/min/1.7 3 m2 05/21/2018 11:14 AM [facility] Blood BLOOD SPECIMEN / Unknown Venipuncture / Unknown 05/21/2018 10:45 AM FRUIT GRADER 05/21/2018 10:51 AM FRUIT GRADER Harish Stauffer MD LAB - CHEMISTRY [facility] [address] [phone] * (ABNORMAL) COMPREHENSIVE METABOLIC PANEL (01/03/2016 5:23 AM CDT) BUN 12 7 - 26 mg/dL [facility] Creatinine 0.7 0.6 - 1.2 mg/dL [facility] Sodium 140 136 - 145 mmol/L [facility] Potassium 3.6 3.5 - 4.5 mmol/L [facility] Chloride 104 98 - 107 mmol/L [facility] CO2 28 22 - 29 mmol/L [facility] Glucose 137(H) 70 - 115 mg/dL [facility] Calcium 8.7 8.4 - 10.2 mg/dL [facility] Protein Total 6.2 6.0 - 8.3 g/dL [facility] Albumin 3.3(L) 3.4 - 5.0 g/dL [facility] Bilirubin Total 0.4 0.2 - 1.2 mg/dL [facility] Alkaline Phosphatase 46 40 - 150 Units/L [facility] ALT 21 0 - 55 Units/L [facility] AST 17 5 - 34 Units/L [facility] Anion Gap 12 8 - 18 [facility] BUN/Creatinine Ratio 17 7 - 23 [facility] Osmolality Calculated 292 270 - 300 mOsm/kg [facility] Albumin/Globulin Ratio 1.1 1.1 - 2.3 [facility] eGFR >60 >60 mL/min/1.7 3 m2 [facility] Blood specimen (specimen) BLOOD SPECIMEN / Unknown 01/03/2016 5:23 AM CDT 01/03/2016 5:30 AM CDT Slick Amanda DO LAB - CHEMISTRY [facility] [address] [phone] * (ABNORMAL) CBC W AUTO DIFFERENTIAL (01/02/2016 5:11 PM CDT) Only the most recent of2 resultswithin the time period is included. WBC 12.8(H) 3.5 - 10.5 10? 3 /uL [facility] RBC 4.21 3.90 - 5.00 10? 6 /uL [facility] Hemoglobin 12.8 12.0 - 15.5 g/dL [facility] Hematocrit 37.6 35.0 - 45.0 % [facility] MCV 89.3 81.0 - 97.0 fL [facility] MCH 30.4 28.0 - 34.0 pg [facility] MCHC 34.0 32.0 - 36.0 g/dL [facility] Platelet Count 218 150 - 400 10? 3 /uL [facility] RDW-SD 38.3 36.0 - 50.0 fL [facility] RDW-CV 11.7 11.2 - 14.8 % [facility] MPV 11.0 9.3 - 12.8 fL [facility] Neutrophils % 91.9(H) 35.0 - 70.0 % [facility] Lymphocytes % 5.7(L) 19.7 - 55.1 % [facility] Monocytes % 2.3(L) 3.0 - 15.0 % [facility] Eosinophils % 0.0 0.0 - 6.0 % [facility] Basophil % 0.1 0.0 - 1.5 % [facility] Neutrophils Absolute 11.7(H) 1.6 - 7.0 10? 3 /uL [facility] Lymphocyte Absolute 0.7(L) 0.8 - 2.9 10? 3 /uL [facility] Monocytes Absolute 0.29 0.14 - 0.66 10? 3 /uL [facility] Eosinophils Absolute 0.00 0.00 - 0.22 10? 3 /uL [facility] Basophils Absolute 0.01 0.00 - 0.06 10? 3 /uL [facility] Immature Granulocytes % 0.2 0.0 - 1.0 % [facility] Blood specimen (specimen) BLOOD SPECIMEN / Unknown 01/02/2016 5:11 PM CDT 01/02/2016 5:47 PM CDT Slick Amanda DO LAB - HEMATOLOGY ORD ERABLES [facility] [address] [phone] Care Teams Acidizer Helper Relationship Specialty Start Date End Date Vanessa Mccoy MD [facility] [place] [address] PCP - General Family Medicine 08/09/15
--- OUTSIDE RECORDS SUMMARY | 2024-05-13 14:46 | XMS_ITS | Encounter Summary ---
Author Organization [facility] Health Address [address] [place] [address] Care Team Providers Care Cigarette Lighter Repairer Name Role Phone Vanessa Mccoy MD Primary Care Provider Encounter Details Date Type Department Care Team (Late st Contact Info) Description 02/08/2019 Telephone [facility] [address] [place] [address] Slick Amanda, DO [address] [facility] [address] [place] [id number] Social History Tobacco Use Types Packs/Day Years Used Date Smoking Tobacco: Never Smokeless Tobacco: Never Alcohol Use Standard Drinks/Week Comments Yes 2 (1 standard drink = 0.6 oz pur e alcohol) Sex and Gender Information Value Date Recorded Sex Assigned at Not on file Gender Identity Not on file Sexual Orientation Not on file documented as of this encounter Plan of Treatment Not on file documented as of this encounter Visit Diagnoses Not on filedocumented in this encounter Care Teams Cigarette Lighter Repairer Relationship Specialty Start Date End Date Vanessa Mccoy MD [address] [place], [place] [address] [place] [address] PCP - General Family Medicine 08/09/15 documented as of this encounter
--- OUTSIDE RECORDS SUMMARY | 2024-05-13 14:46 | XMS_ITS | CONTINUITY OF CARE DOCUMENT ---
Author Name susanajoniviktoriya Address Unknown Organization [facility] Address [address] [facility] [address] [place] [address] Phone [phone] Care Team Providers Care Steward/Stewardess Wine Name Role Phone Wale HERNANDEZ, [facility] Unavailable PAMELA CROSS MD Unavailable PAMELA CROSS MD Unavailable [phone] INSURANCE PROVIDERS Payer name Policy type / Coverage type [place] red libertarian ID [employer]\[facility] [employer] insurance Team Apart [id number]
--- OUTSIDE RECORDS SUMMARY | 2024-05-13 14:46 | XMS_ITS | Referral Summary ---
Author Organization [facility] Address [address] [place] [address] Care Team Providers Care Pst Specialist Name Role Phone Vanessa Mccoy MD Primary Care Provider [phone] [facility],non-owned Affiliates and Associated Physician Practices is amultiple site organization consisting of ambulatory clinics and hospital sitesin [place], [place], [place] and [place]. This disclosure is being madepursuant to the Care Everywhere program and may not contain all information available regarding this patient. Last updated 18.[facility] Allergies Active Allergy Reactions Criticality Noted Date [...] Mass Index 23.05 11/29/2019 11:33 AM CDT Functional Status Functional Status Response Date of Assess ment Is person deaf or have serious hearing difficult y? No 09/23/2019 Is person blind or have serious difficulty seein g? No 09/23/2019 Does person have serious dif ficulty walking/climbing stairs? Yes 09/23/2019 Does person have difficulty dressing/bathing? No 09/23/2019 Does person have difficulty doing errands alone? No 09/23/2019 Cognitive Status Response Date of Assessm ent Does person have difficulty concentrating/remembering/making decisions? No 09/23/2019 Plan of Treatment Not on file Medical Devices Explanted Type Area Quantitative Analyst Marketing Device Identifier Shelf Expiration Date Model / Serial / Lot Explanted Hardware- 10 Screws, 2 Plates, 1 Washer Explanted:Qty: 1 on 05/21/2018 by Slick Amanda, at [facility] Left: Foot N/A / / Description:Explanted- 10 sc rews, 2 plates, 1 washer Advance Directives * Full Code (Latest Code Status on File) Date Activated Date Inactivated Comments 05/21/2018 7:10 AM 05/21/2018 9:16 PM Care Teams Pst Specialist Relationship Specialty Start Date End Date Vanessa Mccoy MD [facility] [place] [id number] PCP - General Family Medicine 08/09/15
--- OUTSIDE RECORDS SUMMARY | 2024-05-13 14:47 | XMS_ITS | Data Portability ---
Author Organization [place] [facility] [employer], Main Office Address [address] [place] [address] Care Team Providers Care Setup Operator Name Role Phone LAMONTE VIDES Primary Care Provider LAMONTE VIDES Referring Provider [phone] JOSE ANTONIO ZHU Test Driver Unavailable Assessment Encounter Date Assessment Date Assessment LastModified by Organization Details LastModified Time 02/11/2024 02/11/2024 58-year-old female presents follow-up of her right ankle. She had a ankle sprain/lateral malleolus avulsion that we have been treating conservatively. We last saw her about 3 weeks ago, she reports feeling worse, still having extreme pain and sensitivity around the ankle, as well as muscle spasm in the calf. She currently rates her pain 7/10. She has been taking Flexeril and still wearing the boot and using crutches. Physical exam: Boot was removed. She has sensitivity around the ankle and foot. Very tender with light palpation throughout the ankle. She has sensation intact to light touch throughout, able to move her toes and ankle without difficulty. She has developed some CRPS. We discussed that her ankle sprain is healed. She does not need to be in a boot or use crutches anymore. She is very apprehensive about progressing with activities. We will send her to physical therapy to work on the hypersensitivity. Can also send her to pain management for evaluation. We will see her back in 4-6 weeks. Her work status will be okay to sit or stand, but avoid climbing ladders. Not available 02/11/2024 15:11:07 02/25/2024 02/25/2024 58-year-old female presents for follow-up of her right ankle. She has ankle sprain that we should conservatively and has since healed up. Last time, we tried to get her to wean out of her boot and crutches. A few days ago she had increasing sensitivity and pain in the ankle and presented to outside hospital ER, where she was discharged. She still reports having significant sensitivity and hesitancy about putting weight on the ankle. She currently rates her pain as 5/10. She says she has been doing better since last week. She still has sensitivity over the lateral ankle. Tenderness of the tip of the fibula. She has stiffness with ankle range of motion. She remains in the boot and crutches today. We discussed that she no longer needs to immobilize the ankle and she tried to walk on it, and returned to her normal activities. She should also try to desensitize ankle. She is scheduled to start physical therapy on Friday. We still are awaiting the pain management referral. In the meantime, we will get her an ASO brace to provide a little additional support. We will have her follow-up in 6 weeks, or sooner as needed. She has a room plan. Not available 02/25/2024 16:02:10 Plan of Treatment Reminders Order Date Submit Date Provider Last Modified By Organization Details Last Modified Time Details Appointments Sick/Acut e 2024 11:30A M INÉS Powers Not available Not available Not available Follow Up 2024 02:00P M SHEILA Ruiz Not available Not available Not available New Patient 15 2024 03:30P M Dung Solitario DPM Not available Not available Not available Lab rf (rheumato id factor), serum 2023 024 [facility], [address], [place], [address], 04/20/2024 16:25:07 ESR (erythroc yte sedimenta tion rate), blood 2023 024 [facility], [address], [place], [address], 04/20/2024 16:25:56 CRISSY (antinucl ear antibodie s) screen, ifa, serum 2023 [facility], [address], [place], [address], 04/20/2024 16:26:35 ccp (cyclic citrullin ated peptide) iga+igg, serum 2023 [facility], [address], [place], [address], 04/20/2024 16:27:15 C reactive protein, QN, serum or plasma 2023 [facility], [address], [place], [address], 04/20/2024 16:28:16 rapid flu (A+B) 2024 [facility], [address] [place], [address], 05/13/2024 13:50:23 Referral pain managemen t referral - Please contact patient to schedule. ...jaden crane is work comp 2023 [facility], [address], [place], [address], 02/25/2024 16:53:03 physical therapist referral 2023 [facility], [address], [place], [address], 02/27/2024 14:29:14 podiatris t referral - Please call patient to schedule an appointme nt. Thank you. 2023 [email or web address] Dung Solitario DPM, [address], [place], [address], 04/12/2024 08:57:13 orthopedi c surgeon referral - fracture right fibula at work , not getting better . Please call patient to schedule an appointme nt. Thank you. 2023 [email or web address] Jorge Reinoso MD, [address], [facility], [place], [address], 04/12/2024 08:58:27 Procedures None recorded. Surgeries None recorded. Imaging XR, chest, 2 view 2024 [facility], [address], [place], [address], 05/13/2024 14:55:35 Medication Orders phentermi ne 37.5 mg tablet 2023 IGNACIO [facility]166, [address], [place], [id number], 03/15/2024 17:01:17 hydrocodo ne 5 mg-acetam inophen 325 mg tablet 2023 024 [email or web address] 00 [facility] #55002, [address], [place], [id number], 03/15/2024 16:11:25 prednison e 20 mg tablet 2023 024 [email or web address] [facility] #87786, [address], [place], [id number], 03/30/2024 15:57:53 alprazola m 1 mg tablet 2023 [id number] 53 [facility] #18777, [address], [place], [id number], 04/21/2024 03:59:21 ropinirol e 0.25 mg tablet 2024 025 [facility] #03921, [address], [place], [id number], 05/13/2024 12:40:09 hydrocodo ne 5 mg-acetam inophen 325 mg tablet 2024 025 IGNACIO [facility]91053, [address] [facility], [place], [place], [id number], 04/20/2024 16:03:12 triamcino lone acetonide 40 mg/mL suspensio n for injection 2024 025 Not available 05/13/2024 15:06:01 Patient TargetsNo targets recorded. Patient InstructionsNo instructions recorded. Reason for Referral Pain Management Referral for Pain of right ankle joint CRPS Please contact patient to schedule....patient is work comp Referring Physician: Slick Abdi, Orthopedic Surgery, Encounter Date: 02/11/2024 Physical Therapist Referral for Pain of right ankle joint right ankle sprain and hypersensativity and spasms Referring Physician: Slick Abdi, Orthopedic Surgery, Encounter Date: 02/11/2024 Technical Developer Referral for Foot pain Please call patient to schedule an appointment. Thank you. Referring Physician: Lamonte Vides [facility] Medicine, Encounter Date: 03/15/2024 Orthopedic Surgeon Referral for Closed fracture of right fibula fracture right fibula at work , not getting better . Please call patient to schedule an appointment. Thank you. Referring Physician: Lamonte Vides [facility] Medicine, Encounter Date: 03/15/2024 Results Created Date Observation Date Name Description Value Unit Range Abnormal Flag Note LastModifiedBy Organization Detail LastModifiedTime 05/13/19 25 05/13/2024 rapid flu (A+B) Flu A negati ve Not Available [facility] [address] [facility], [place], [address], 05/13/2024 13:05:28 01/20/20 24 01/06/2024 XR, ankle , 2 view No observ ation record ed. [email or web address] Not Available 11/2023 10:14:42 01/21/20 24 XR, ankle , 3 or more view No observ ation record ed. [email or web address] [facility] [place] [address], [place], [address], 01/23/2024 12:01:26 Result Notes None recorded. Problems Name Problem SNOMED Code Status Onset Date Resolution Date Notes Provider Name and Address Organization Details Recorded Time Acute sinusitis 27382247 Active Not Available [facility] 3 02:17:10 Pain in toe 865774584 Active 2021 Not Available [facility] 3 02:17:10 Foot pain 93356628 Active pins SHEILA Ruiz [address] [facility], [place], [address] , [facility] [employer] 4 09:58:45 Anxiety 28380400 Active Not Available [facility] 3 02:17:10 Joint pain 73344293 Active Not Available [facility] 3 02:17:10 Skin lesion 15027320 Active Not Available [facility] 3 02:17:10 Overweigh t 574045162 Active 2022 Not Available [facility] 3 02:17:10 Diarrhea 52742319 Active 2022 Not Available [facility] 3 02:17:10 Cervical radiculop athy 31977832 Active 2022 Not Available [facility] 3 02:17:10 Carpal tunnel syndrome of right wrist 76123826859 9108 Active 2022 Not Available [facility] 3 02:17:10 Tendiniti s of right wrist region 87075868311 724610 Active 2023 SHEILA Ruiz [address], [place], [address] , [facility] 4 12:18:33 Intervert ebral disc prolapse 03707043 Active 2023 cervical C6-7 osteophyt e bulge C5-6 SHEILA Ruiz [address], [place], [address] , [place] [facility] 4 10:21:46 Neck pain 49561265 Active 2023 Rubia Garcia RN null, [place] [facility] 4 16:53:37 Contact dermatiti s of neck Active 2023 SHEILA Ruiz [address], [place], [address] , [place] [facility] 4 14:32:36 Generaliz ed acute body pains 788457360 Active 2023 Emmanuelle Arora RN null, [place] [facility] 4 11:42:41 Upper respirato ry infection 51203578 Active 2023 SHEILA Ruiz [address], [place], [address] , [facility] [place] [facility] 4 11:45:41 Otitis media 21977034 Active 2023 SHEILA Ruiz [address], [place], [address] , [facility] [place] [facility] 4 11:55:43 Pain of right ankle joint 87736618297 685345 Active 2023 ALESIA Poe null, [place] [facility] [place] [facility] 4 15:30:16 Chronic urticaria 76838043 Active 2023 SHEILA Ruiz [address], [place], [address] , [facility] 4 12:38:44 Closed fracture of right fibula 73802139793 020465 Active 2023 SHEILA Ruiz [address], [place], [address] , [place] [facility] 4 15:55:38 Eczema 34383049 Active 2023 SHEILA Ruiz [address], [place], [address] , [facility] [employer] [facility] 4 16:12:33 Ankle pain 911706133 Active 2024 SHEILA Ruiz [address] [facility] [address] [facility], [place], [address] , [facility] [employer] [facility] 5 15:57:05 Cough 71940178 Active 2024 INÉS Powers [address] [facility], [place], [address] , [facility] [employer] [facility] 5 13:05:17 Problem Notes None recorded. Procedures Surgical History Date Name Laterality Status Provider Name and Address Organization Details Recorded Time Cardiac Cath completed ALESIA Poe [facility] [employer] [facility] 01/21/2024 15:27:49 section completed ALESIA Poe [facility] [employer] 01/21/2024 15:28:01 Imaging Results Imaging Date Name Status LastModified by Organiz ation Details LastModified Time 01/06/2024 XR, ankle, 2 view completed [email or web address] Information not available 01/20/2024 10:14:42 01/21/2024 XR, ankle, 3 or more view completed [email or web address] [facility] [place] [address], [place], [address], 01/23/2024 12:01:26 Procedure Notes None recorded. Medical Equipment None [...] Available Not Available Not Available Flucelvax Quad [id number] (PF) 60 mcg (15 mcg x 4)/0.5 mL IM syringe ADM 0.5ML IM UTD 02/19 completed Not Available Not Available Not Available Flucelvax Quad (PF) 60 mcg (15 mcg x 4)/0.5 mL IM syringe active Not Available Not Available Not Available Vitals Date Recorded Body height Body mass index (BMI) Body weight Provider Name and Address Organization Details Last Updated DateTime 02/11/2024 157.48 cm 22.5 kg/m2 32863.86 g ALESIA Poe [place] [facility] [employer] 02/11/2024 13:42:49 Date Recorded Body height Body mass index (BMI) Body weight Provider Name and Address Organization Details Last Updated DateTime 02/25/2024 157.48 cm 22.5 kg/m2 35076.86 g Mounika ALESIA Marroquin [facility] 02/25/2024 15:27:15 Date Recorded Body height Body mass index (BMI) Body weight Body temperature Oxygen saturation Oxygen saturation in Arterial blood by Pulse oximetry Heart rate Systolic blood pressure Diastolic blood pressure Provider Name and Address Organization Details Last Updated DateTime 4 157.48 cm 24 kg/m2 50025.6 g 98.4 [degF] 99 % 99 % 96 /min 136 mm[Hg] 90 mm[Hg] Emmanuelle Arora RN [facility] 4 15:49:28 Date Recorded Body height Body mass index (BMI) Body weight Provider Name and Address Organization Details Last Updated DateTime 04/12/2024 157.48 cm 23.2 kg/m2 26691.23 g Emmanuelle Arora RN [facility] 04/12/2024 15:20:24 Date Recorded Body height Body mass index (BMI) Body weight Body temperature Heart rate Oxygen saturation Oxygen saturation in Arterial blood by Pulse oximetry Systolic blood pressure Diastolic blood pressure Provider Name and Address Organization Details Last Updated DateTime 5 157.48 cm 24.3 kg/m2 78678.7 9 g 98.3 [degF] 83 /min 100 % 100 % 130 mm[Hg] 86 mm[Hg] Emmanuelle Arora RN [facility] 5 15:42:36 Date Recorded Body height Body mass index (BMI) Body weight Body temperature Heart rate Respiratory rate Oxygen saturation Oxygen saturation in Arterial blood by Pulse oximetry Systolic blood pressure Diastolic blood pressure Provider Name and Address Organization Details Last Updated DateTime 5 157.48 cm 23.6 kg/m2 06599.4 7 g 98.2 [degF] 100 /min 24 /min 99 % 99 % 120 mm[Hg] 90 mm[Hg] Yary Ervin RN [facility] 5 12:42:18 Social History Question Answer Notes LastModified by Organizat ion Details LastModified Time Tobacco Smoking Status Never Smoker Yary Ervin RN [facility], [facility] [employer] 05/13/2024 12:42:57 What Is Your Level Of [...] Anxious, Or Unable To Sleep At Night)? [id number] Information not available 05/13/2024 Have You Recently Traveled Abroad? No Information not available 05/13/2024 Sex: Unknown Functional Status None recorded. Mental Status None recorded. Family History Relationship Description Onset Age of this Age Resolved Age Notes LastModified by Organization Details LastModified Time Father Heart disease [email or web address] Not available 2023 15:26:16 Father Family history of stroke [email or web address] Not available 2023 15:26:28 Father History of malignant neoplasm Not available 2023 15:26:48 Father Hypertensive disorder [email or web address] Not available 2023 15:26:58 Daughter Diabetes mellitus [email or web address] Not available 2023 15:27:06 Medical History Condition Response HEART ARRHYTHMIA Y Gynecological HistoryNo gynecological history recorded. Obstetrics History GPAL:G 0 P 0 0 0 0 Immunizations Vaccine Type Date Status Note Provider Nam e and Address Organization Details Recorded Time SARS-COV-2 (COVID-19) vaccine, UNSPECIFIED 09/06/2020 completed Yary Ervin RN [facility], [place] - [facility] 05/13/2024 12:37:15 Past Encounters Encounter ID Performer Location Encounter Start Date Encounter Closed Date Diagnosis/Indication Diagnosis SNOMED-CT Code Diagnosis ICD10 Code Diagnosis Note [id number] [facility] [place] [address] [place] [address] 04/30/2021 00:00:00 05/01/2021 08:39:54 [id number] [facility] [place] [address] [place] [address] 05/29/2021 00:00:00 05/29/2021 22:12:19 [id number] [facility] [place] [address] [place] [address] 08/01/2021 00:00:00 08/01/2021 19:27:29 [id number] [facility] [place] [address] [place] [address] 12/07/2021 00:00:00 12/07/2021 19:01:12 [id number] [facility] [place] [address] [place] [address] 12/28/2021 00:00:00 12/28/2021 18:38:23 [id number] [facility] [place] [address] [place] [address] 03/25/2022 00:00:00 03/25/2022 20:38:31 [id number] [facility] [place] [address] [place] [address] [place] [address] 04/29/2022 00:00:00 04/30/2022 14:15:27 [id number] Vanessa Mccoy MD [facility] [place] [address] [place] [address] [place] [address] 07/09/2022 14:07:35 07/09/2022 15:11:21 Acute sinusitis 01881613 J01.90 Hot packs and NSAIDs. Airborne and MVI Diarrhea 60690645 R19.7 SxRx Drink Gatorade stay hydrated. [id number] Vanessa Mccoy MD [facility] [place] [address] [place] [address] [place] [address] 02/13/2023 16:12:06 02/13/2023 16:40:03 Cervical radiculopathy 19202639 M54.12 ibuprofen to use heat and biofreeze. Note written for weight restrictio n of 10#s at work x 1 month. 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 Ice/heat [id number] SHEILA Ruiz [facility] [place] [address] [place] [address] [place] [address] 05/30/2023 09:37:45 05/30/2023 10:07:47 Cervical radiculopathy 53793304 M54.12 Foot pain 41285425 M79.6 72 Overweight 779884809 E66 .3 Anxiety 06579116 F41.9 [id number] SHEILA Ruiz [facility] [place] [address] [place] [address] [place] [address] 07/01/2023 15:48:28 07/16/2023 13:40:41 Neck pain 46515143 M54.2 [id number] SHEILA Ruiz [facility] [place] [address] [place] [address] 07/11/2023 11:33:57 07/11/2023 12:06:37 Anxiety 38103083 F41.9 Cervical radiculopathy 31904760 M54.12 Interverte bral disc prolapse 86000354 M51.9 cervical Neck pain 45207871 M54.2 [id number] SHEILA Ruiz [facility] [place] [address] [facility] [place] [address] 07/18/2023 12:32:38 07/18/2023 13:00:37 Neck pain 84528972 M54.2 Cervical radiculopathy 37098886 M54.12 Interverte bral disc prolapse 92761039 M51.9 cervical Anxiety 40576586 F41.9 [id number] SHEILA Ruiz [facility] [place] [address] [facility] [place] [address] 12/01/2023 11:33:52 12/01/2023 12:03:50 Generalized acute body pains 749524989 R52 Upper resp iratory infection 84616213 J06.9 Cervical radiculopathy 08074961 M54.12 Acute sinusitis 49760642 J01.90 Anxiety 63081261 F41.9 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 [place] [address] 01/21/2024 14:48:43 01/21/2024 16:01:34 Pain of right ankle joint 9726421544 0568630 M25.998 [id number] Slick Abdi MD [facility] [place] [address] [place] [address] 02/11/2024 13:39:07 02/11/2024 14:23:55 Pain of right ankle joint 4725010573 6269330 M25.196 [id number] Slick Abdi MD [facility] [place] [address] [place] [address] 02/25/2024 15:25:25 02/25/2024 15:43:51 Pain of right ankle joint 2336879917 2423046 M25.041 [id number] SHEILA Ruiz [address] [address] 03/15/2024 15:07:34 03/15/2024 16:17:32 Foot pain 27100566 M79.672 left Closed fra cture of right fibula 9839872664 1786484 S82.401A Cervical radiculopathy 81141758 M54.12 Joint pain 50682475 M25. 50 Eczema 86853810 L30.9 Anxiety 28100114 F41.9 Overweight 828803828 E66 .3 [id number] SHEILA Ruiz [address] [address] 04/20/2024 15:32:02 04/20/2024 16:28:17 Cervical radiculopathy 37388116 M54.12 Pain of ri ght ankle joint 5334027454 6246132 M25.571 Generalize d acute body pains 009651718 R52 Interverte bral disc prolapse 28708294 M51.9 cervical [id number] INÉS Powers [address] [address] 05/13/2024 12:28:36 05/13/2024 13:52:30 Cough 65050784 R05.9 Will discuss over the phone after XR results Health Concerns Section Related Observation LastModified by Organization Detai ls LastModified Time None Recorded Concern Status LastModified by Organization Details LastModified Time None Recorded Advance Directives Directive None Recorded Payers Encounter Date Sequence Insurance Name Policy Number Policy Lambert Covered Member ID Lambert Member ID Guarantor Name 02/11/2024 [employer] Virginia Pinto 02/25/2024 [employer] Virginia Pinto 03/15/2024 [employer] Fatou Pinto 04/20/2024 1 [employer] [id number] Virginia Pinto [id number] Virginia Pinto 05/13/2024 1 [employer] [id number] Virginia Pinto Virginia Pinto Notes Date Note Type Note Provider Name and Address Organization Details Recorded Time 03/15/2024 text/html At work , slippe d on water ankle hit ankle on concrete floor . broke fibula . right . could not stand the boot . left foot feels like the pins are coming out SHEILA Ruiz [address] [employer], [place], [address], [employer] 03/23/2024 15:36:35 04/20/2024 text/html right lower leg hurts still; sore all over SHEILA Ruiz [address] [employer], [place], [address], [employer] 04/26/2024 15:22:08 05/13/2024 text/html Virginia Pinto is a 59 year old female patient of Stew Vides here today for sickness For the past [...] She had ear infections 2 months ago. INÉS Powers [address] [employer] [address], [place], [address], [employer] 05/13/2024 15:04:18 OBGyn Episode No OBEpisode recorded.
--- OUTSIDE RECORDS SUMMARY | 2024-05-13 14:47 | XMS_ITS | Clinical Summary ---
Author Organization [facility] Address [address] [place] [address] Care Team Providers Care Marketing Intern Name Role Phone Unavailable Primary Care Provider Unavailabl e Social History Tobacco Use Types Packs/Day Years Used Date Smoking Tobacco: Never Assessed Comments Unknown Sex and Gender Information Value Date Recorded Sex Assigned at Not on file Legal Sex Female 12:07 PM [employer] Gender Identity Not on file Sexual Orientation Not on file Plan of Treatment Health Maintenance Due Date Last Done Comments Hepatitis C Virus (HCV) Screening 1966 TdaP Immunization 1966 Hepatitis B Immunization (1 of 3 - 19+ 3-dose series) 1985 Pap Smear 1987 Cervical Cancer Screening (CCS) 1996 HPV/Cotest 1996 Colonoscopy 2011 Colorectal Cancer Screening 2011 Cologuard 2016 Immunochemical Fecal Occult Blood 2016 Mammogram 2016 Pneumococcal Immunization (5 0+ years) (1 of 1 - PCV) 2016 Zoster Immunization (1 of 2) 2016 Influenza Immunization (#1) 12/14/202301/12, 01/17/2017 SARS-COV-2 Immunization ( season) 2023 09/06/2020, 08/16/2020 Respiratory Syncytial Virus (RSV) Immunization (Adult) (1 - 1-dose 75+ series) 2041 Meningococcal Immunization (ACWY) Aged Out No longer eligible b ased on patient's age to complete this topic Pneumococcal Immunization Combined Aged Out No longer eligible b ased on patient's age to complete this topic Rotavirus Immunization Aged Out No lo nger eligible based on patient's age to complete this topic
--- OUTSIDE RECORDS SUMMARY | 2024-05-13 14:47 | XMS_ITS | Encounter Summary ---
Author Organization [facility] Health Address [address] [place] [address] Care Team Providers Care Parachute Supervisor Name Role Phone Vanessa Mccoy MD Primary Care Provider [phone] Reason for Visit * Reason Onset Date Comments MEDICATION REFILL 06/15/2018 Encounter Details Date Type Department Care Team (Late st Contact Info) Description 06/15/2018 Refill [facility] [facility], [place] [address] Slick Amanda, [address] [facility] [address] [place] [address] MEDICATION REFILL Social History Tobacco Use Types Packs/Day Years [...] on filedocumented in this encounter Care Teams Parachute Supervisor Relationship Specialty Start Date End Date Vanessa Mccoy MD [address] [place] [address] [address] [place] [id number] PCP - General Family Medicine 08/09/15 documented as of this encounter
--- OUTSIDE RECORDS SUMMARY | 2024-05-13 14:47 | XMS_ITS | Encounter Summary ---
Author Organization [facility] Health Address [address] [place] [address] Care Team Providers Care Body Painter Name Role Phone Vanessa Mccoy MD Primary Care Provider [phone] Reason for Visit * Reason Onset Date Comments MEDICATION REFILL 06/13/2018 Encounter Details Date Type Department Care Team (Late st Contact Info) Description 06/13/2018 Refill [facility] [facility] [place] [address] Slick Aamnda, [address] [facility] [address] [place] [address] MEDICATION REFILL Social History Tobacco [...] on filedocumented in this encounter Care Teams Body Painter Relationship Specialty Start Date End Date Vanessa Mccoy MD [address] [place] [address] [address] [place] [address] PCP - General Family Medicine 08/09/15 documented as of this encounter
== END 2024-05-13 14:02 | disposition home or self-care (01) ==
DX: R05.9 Cough, unspecified (principal)
CPT/HCPCS: 71046

== ENCOUNTER 2024-09-22 13:37 | Emergency (ER) | payer OTHER, SELFPAY ==
--- NOTE | ~2024-09-22 | CT_ITS ---
CT brain wo con Ordering provider: Venancio Obrien MD History: 59 years Female with . vertigo . Comparison: April 12, 2024 Technique: CT of the head without contrast. Radiation reduction technique utilized.The dose-length product was 605.33 mGy-cm. FINDINGS: BRAIN PARENCHYMA AND CSF SPACES: No midline shift, mass effect or hemorrhage. The brain parenchyma a nd CSF spaces are otherwise normal. VISUALIZED PARANASAL SINUSES: Well aerated. MASTOIDS: Well aerated. BONES: The bones appear intact. SOFT TISSUES: Visualized nasopharynx is normal. Superficial soft tissues are normal. IMPRESSION: No acute intracranial findings. Reviewed, dictated and finalized at location A.
[2024-09-22 13:38] VITALS: BP 109/79; PULSE 95; RESP 16; TEMP 36.8; O2SAT 100
--- OUTSIDE RECORDS SUMMARY | 2024-09-22 15:55 | XMS_ITS | CONTINUITY OF CARE DOCUMENT ---
Author Name susanajoniviktoriya Address Unknown Organization [facility] Address [address] [place] [address] Phone [phone] Care Team Providers Care Director Speech Language Name Role Phone Wale HERNANDEZ, [facility] Unavailable [phone] PAMELA CROSS MD Unavailable [phone] PAMELA CROSS MD Unavailable INSURANCE PROVIDERS Payer name Policy type / Coverage type [place] red green party ID [employer]IG[employer]\[facility] Matchfund insurance [employer] [id number]
--- OUTSIDE RECORDS SUMMARY | 2024-09-22 15:55 | XMS_ITS | Clinical Summary ---
Author Organization [facility] Address [address] [place] [address] Care Team Providers Care Anesthesiology Physician Name Role Phone Vanessa Mccoy MD Primary Care Provider [phone] Source Comments [facility],non-owned Affiliates and Associated Physician Practices is amultiple site organization consisting of ambulatory clinics and hospital sitesin [place], [place], [place] and [place]. This disclosure is being madepursuant to the Care Everywhere program and may not contain all information available regarding this patient. Last updated 18.[facility] Allergies Active Allergy Reactions Criticality Noted Date Comments Tramadol Nausea and/or Vomiting 09/23/2019 Medications * Be aware that medications may not be up to date on this document. Alwaysverify current medications with the patient. 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 Gender Identity Not on file Sexual Orientation Not on file Last Filed Vital Signs Vital Sign Reading Time Taken Comments Blood Pressure 122/70 09/23/2019 12:45 PM CDT Pulse 54 09/23/2019 11:50 AM CDT Temperature 36.7 C (98 F) 09/23/2019 12:00 PM CDT Respiratory Rate 15 09/23/2019 11:50 AM CDT Oxygen Saturation 92% 09/23/2019 11:50 AM CDT Inhaled Oxygen Concentration - - Weight 57.2 kg (126 lb) 11/29/2019 11:33 AM CDT Height 157.5 cm (5' 2) 11/29/2019 11:33 AM CDT Body Mass Index [...] VACCINE (1 of 2) 2016 COVID-19 VACCINE (2023-2 5 season) 2023 DEPRESSION SCREENING 04/14/2024 INFLUENZA VACCINE (Season Ended) 2024 HIB VACCINE Aged Out No longer eligi ble based on patient's age to complete this topic HPV VACCINE Aged Out No longer eligi ble based on patient's age to complete this topic MENINGOCOCCAL (Group B) VACC INE SHARED DECISION-MAKING Aged Out No longer eligibl e based on patient's age to complete this topic MENINGOCOCCAL GROUPS A/C/Y/W VACCINE Aged Out No longer eligible b ased on patient's age to complete this topic Medical Devices Explanted Type Area Cigar Packer And Picker Device Identifier Shelf Expiration Date Model / Serial / Lot Explanted Hardware- 10 Screws, 2 Plates, 1 Washer Explanted:Qty: 1 on 05/21/2018 by Slick Amanda DO at [facility] Left: Foot N/A / / Description:Explanted- 10 sc rews, 2 plates, 1 washer Insurance [facility] Advance Directives * Full Code (Latest Code Status on File) Date Activated Date Inactivated Comments 05/21/2018 7:10 AM 05/21/2018 9:16 PM Care Teams Anesthesiology Physician Relationship Specialty Start Date End Date Vanessa Mccoy MD [address] [place] [address] [address] [place] [phone] PCP - General Family Medicine 08/09/15
--- OUTSIDE RECORDS SUMMARY | 2024-09-22 15:55 | XMS_ITS | Encounter Summary ---
Author Organization [facility] Health Address [address] [facility] [place] [address] Care Team Providers Care Pharmaceutical Service Representative Name Role Phone Vanessa Mccoy MD Primary Care Provider [phone] Encounter Details Date Type Department Care Team (Late st Contact Info) Description 02/08/2019 Telephone [facility] [address] [place] [address] Slick Amanda, DO [address] [facility] [address] [place] [id number] Social History Tobacco Use Types Packs/Day Years Used Date Smoking Tobacco: Never Smokeless Tobacco: Never Alcohol Use Standard Drinks/Week Comments Yes 2 (1 standard drink = 0.6 oz pur e alcohol) Comments No Sex and Gender Information Value Date Recorded Sex Assigned at Not on file 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
--- OUTSIDE RECORDS SUMMARY | 2024-09-22 15:56 | XMS_ITS | Clinical Summary ---
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
--- OUTSIDE RECORDS SUMMARY | 2024-09-22 15:56 | XMS_ITS | Encounter Summary ---
Author Organization [facility] Health Address [address] [facility] [place] [address] Care Team Providers Care Portfolio Administrator Name Role Phone Vanessa Mccoy MD Primary Care Provider [phone] Reason for Visit * Reason Onset Date Comments MEDICATION REFILL 06/13/2018 Encounter Details Date Type Department Care Team (Late st Contact Info) Description 06/13/2018 Refill [facility] [facility], [place] [address] Slick Amanda, [address] 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
--- OUTSIDE RECORDS SUMMARY | 2024-09-22 15:56 | XMS_ITS | Encounter Summary ---
Author Organization [facility] Health Address [address] [facility] [address] Care Team Providers Care Soaker Hides Name Role Phone Vanessa Mccoy MD Primary Care Provider [phone] Reason for Visit * Reason Onset Date Comments MEDICATION REFILL 06/15/2018 Encounter Details Date Type Department Care Team (Late st Contact Info) Description 06/15/2018 Refill [facility] [facility] [place] [address] Slick Amanda, [facility] [facility] [address] [place] [address] MEDICATION REFILL Social History Tobacco Use Types Packs/Day Years Used Date Smoking Tobacco: Never Smokeless Tobacco: Never Alcohol Use Standard Drinks/Week Comments Yes 2 (1 standard drink = 0.6 oz pur e alcohol) Comments No Sex and Gender Information Value Date Recorded Sex Assigned at Not on file 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
--- OUTSIDE RECORDS SUMMARY | 2024-09-22 15:56 | XMS_ITS | Data Portability ---
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 She had a right ankle sprain that we are treating conservatively. Last time we prescribed her an ASO brace, which she has weaned out of. She presents today wearing regular campus sneakers. She still reports having some popping and snapping in her ankle. She also reports some feelings of muscle spasms going up her calf and her leg. She says she saw another doctor who recommended MRI but that was not approved by insurance. she has some tenderness over the lateral ankle ligaments. No tenderness around the other parts of the ankle. She has sensation intact to light touch. She has no pain with ankle range of motion. She has nonantalgic gait. She does have some audible popping with gait, although those are not painful. She is progressing well with conservative management of an ankle sprain. She is currently walking without difficulty in regular shoes. We discussed with the soft tissue injuries, they progress over time and she has made good progress. She should continue to work on ankle strengthening exercises. She is finished with PT and we will give her a printout of home exercise program for ankle sprains. 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 we discussed that typically MRIs would be obtained in this situation for preoperative planning purposes, and I am not planning to do any surgery on her based on her current condition, and the results of the MRI would be unlikely to change my plan of treatment. She stated understanding and still wanted to get the scan. We will see her back after the scan. If that comes back cleane, we will clear her. Not available 06/21/2024 10:03:09 07/07/2024 07/07/2024 59-year-old femyimi saunders presents for follow-up of her right ankle. 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 She reports no changes, she is able to walk but still has difficulty with running and standing for long periods of time because of sensitivity and muscle spasms. She has been taking cyclobenzaprine which does help but makes her sleepy so she only takes at night. She currently rates her pain as 5/10. She has sensitivity over the lateral ankle and tenderness over the peroneal tendons. She has no tenderness over the malleoli. She has good ankle range of motion. MRI was reviewed, demonstrating no structural abnormality, intact tendons ligaments. Her MRI was clean. As such, we will place her at [facility]. She will continue to be activities as tolerated. She reports that she was fired from her original job and is about to start a different job. She may follow up as needed. Not available 07/07/2024 11:15:25 Plan of Treatment Reminders Order Date Submit Date Provider Last Modified By Organization Details Last Modified Time Details Appointments None recorded. Lab rapid flu (A+B) 2024 025 IGNACIO s[facility], [address] [facility], [place], [address], 13:50:23 Referral pain management referral - Please call patient to schedule an appointment . Thank you. 2024 025 hrushing6 [facility], [address] [facility], [facility] [address], [place], [address], 17:24:49 Procedures None recorded. Surgeries None recorded. Imaging MRI, ankle, w/ contrast 2024 025 [facility] ([facility]), [address], [place], [address], 09:41:51 XR, chest, [address] [facility], [address], [place], [address], 16:15:15 Medication Orders acyclovir 400 mg tablet 2024 025 [id number], [address], [place], [id number], 15:10:43 triamcinolo ne acetonide 40 mg/mL suspension for injection 2024 025 Not available 15:06:01 ropinirole 0.25 mg tablet 2024 025 [id number], [address], [place], [id number], 5 12:40:09 hydrocodone 5 mg-acetamin ophen 325 mg tablet 2024 025 [id number], [address], [place], [id number], 16:03:12 Patient TargetsNo targets recorded. Patient InstructionsNo instructions recorded. Reason for Referral Pain Management Referral for Intervertebral disc prolapse Please call patient to schedule an appointment. Thank you. Referring Physician: Lamonte Vides, Family Medicine, Encounter Date: 05/18/2024 Results Created Date Observation Date Name Description Value Unit Range Abnormal Flag Note LastModifiedBy Organization Detail LastModifiedTime 05/13/1905/13/2024 rapid flu (A+B) Flu A negati ve Not Available [facility] [address] [facility], [place], [address], 05/13/2024 13:05:28 05/13/19 25 05/13/2024 XR, chest , 2 view No observ ation record ed. [facility] [address], [place], [address], 05/13/2024 17:24:52 07/07/19 25 07/05/2024 MRI, ankle , w/ contr ast No observ ation record ed. [facility] [address] [address], [place], [address], 07/06/2024 16:42:13 Result Notes None recorded. Problems Name Problem SNOMED Code Status Onset Date Resolution Date Notes Provider Name and Address Organization Details Recorded Time Acute sinusitis 95547477 Active Not Available [employer] 3 02:17:10 Pain in toe 965741218 Active 2021 Not Available [facility] 3 02:17:10 Foot pain 26343038 Active pins SHEILA Ruiz [address], [place], [address] , [facility] 4 09:58:45 Anxiety 35451923 Active Not Available [employer] 3 02:17:10 Pain of joint 76545715 Active Not Available [employer] 3 02:17:10 Skin lesion 95368335 Active Not Available [facility] 3 02:17:10 Overweigh t 692430611 Active 2022 Not Available [facility] 3 02:17:10 Diarrhea 18199380 Active 2022 Not Available [facility] 3 02:17:10 Cervical radiculop athy 69823578 Active 2022 Not Available [facility] 3 02:17:10 Carpal tunnel syndrome of right wrist 28501166779 9108 Active 2022 Not Available [facility] 3 02:17:10 Tendiniti s of right wrist region 63126571192 120837 Active 2023 SHEILA Ruiz [address], [place], [address] , [facility] 4 12:18:33 Intervert ebral disc prolapse 33941844 Active 2023 cervical C6-7 osteophyt e bulge C5-6 SHEILA Ruiz [address], [place], [address] , [facility] - [facility] 4 10:21:46 Neck pain 10105938 Active 2023 Rubia Garcia RN null, [place] [facility] 4 16:53:37 Contact dermatiti s of neck Active 2023 SHEILA Ruiz [address], [place], [address] , [facility] 4 14:32:36 Generaliz ed acute body pains 672517028 Active 2023 Emmanuelle Arora RN null, [place] [facility] 4 11:42:41 Upper respirato ry infection 66825274 Active 2023 SHEILA Ruiz [address], [place], [address] , [facility] 4 11:45:41 Otitis media 97961691 Active 2023 SHEILA Ruiz [address], [place], [address] , [facility] 4 11:55:43 Pain of right ankle joint 06844358813 038761 Active 2023 ALESIA Poe null, [place] [facility] 4 15:30:16 Chronic urticaria 02520992 Active 2023 SHEILA Ruiz [address], [place], [address] , [facility] [employer] [facility] [employer] [facility] 4 12:38:44 Closed fracture of right fibula 60128776026 173325 Active 2023 SHEILA Ruiz [address], [place], [address] , [facility] [employer] [facility] 4 15:55:38 Eczema 69061830 Active 2023 SHEILA Ruiz [address], [place], [address] , [employer] [facility] [employer] [facility] 4 16:12:33 Ankle pain 862776447 Active 2024 SHEILA Ruiz [address], [place], [address] , [facility] [employer] [facility] [employer] [facility] 5 15:57:05 Cough 92621769 Active 2024 IN[employer]S Powers [address] [employer], [place], [address] , [facility] [employer] [facility] [employer] [facility] 5 13:05:17 Problem Notes None recorded. Procedures Surgical History Date Name Laterality Status Provider Name and Address Organization Details Recorded Time Cardiac Cath completed Mounika Marroquin Yimi [facility] [employer] [facility] 01/21/2024 15:27:49 section completed Mounika Marroquin Yimi [facility] [employer] [facility] [employer] 01/21/2024 15:28:01 Imaging Results None recorded. Procedure [...] DAY AT NOON. a 10 day course active Not Available Not Available No t Available azithromy donita 250 mg tablet TAKE 2 TABLETS BY MOUTH FOR 1 DAY THEN TAKE 1 TABLET BY MOUTH DAILY FOR 4 DAYS 12/28 completed Not Available Not Available Not Available alprazola m 1 mg tablet TAKE 1 TO 2 TABLETS BY MOUTH DAILY NEEDED 05/18 completed per cutting back to alprazol am 0.5mg in APR 2024!!! Not Available Not Available Not Available fluconazo le 150 mg tablet TAKE 1 TABLET BY MOUTH EVERY 72 HOURS FOR 9 DAYS 01/20 completed Not Available Not Available Not Available benzonata te 200 mg capsule Take 1 capsule 3 times a day by oral route as needed for 14 days. active Not Available Not Available No t Available hydrocodo ne 5 mg-acetam inophen 325 mg tablet TAKE 1 TABLET BY MOUTH THREE TIMES DAILY NEEDED active Not Available Not Available No t Available meloxicam 15 mg tablet Take 1 tablet [...] TAKE 1 TABLET BY MOUTH EVERY MORNING active Not Available Not Available No t Available acetamino phen 300 mg-codein e 30 mg tablet TK ONE T PO Q 6 H PRF PAIN 02/19 completed Not Available Not Available Not Available acyclovir 400 mg tablet TAKE 1 TABLET BY MOUTH EVERY 8 HOURS FOR 5 DAYS active Not Available Not Available No t Available tramadol 50 mg tablet TAKE 1 [...] Available alprazola m 0.5 mg tablet TAKE 1 TO 2 TABLETS BY MOUTH TWICE DAILY NEEDED active [...] clobetaso l 0.05 % topical ointment APPLY THIN LAYER TOPICALL Y TO THE AFFECTED AREA TWICE DAILY active Not Available Not Available No t [...] 4 mg tablets in a dose pack USE DIRECTED active Not Available Not Available No t Available albuterol sulfate HFA 90 mcg/actua tion [...] Available Not Available Not Available Flucelvax Quad 1882-7934 (PF) 60 mcg (15 mcg x 4)/0.5 [...] Updated DateTime 5 157.48 cm 24.3 kg/m2 54531.7 9 g 98.3 [degF] 83 /min 100 % 100 % 130 mm[Hg] 86 mm[Hg] Emmanuelle Arora RN [facility] [employer] [facility] 15:42:36 Date Recorded Body height Body mass index (BMI) Body weight Body temperature Heart rate Respiratory rate Oxygen saturation Oxygen saturation in Arterial blood by Pulse oximetry Systolic blood pressure Diastolic blood pressure Provider Name and Address Organization Details Last Updated DateTime 157.48 cm 23.6 kg/m2 55095.4 7 g 98.2 [degF] 100 /min 24 /min 99 % 99 % 120 mm[Hg] 90 mm[Hg] Yary Ervin RN [facility] [employer] [facility] 12:42:18 Date Recorded Body height Body mass index (BMI) Body weight Body temperature Heart rate Oxygen saturation Oxygen saturation in Arterial blood by Pulse oximetry Systolic blood pressure Diastolic blood pressure Provider Name and Address Organization Details Last Updated DateTime 157.48 cm 23.6 kg/m2 11523.4 2 g 98.2 [degF] 107 /min 98 % 98 % 134 mm[Hg] 82 mm[Hg] Donavon Morales RN [facility] [employer] 15:00:38 Date Recorded Body height Body mass index (BMI) Body weight Provider Name and Address Organization Details Last Updated DateTime 06/21/2024 157.48 cm 23.8 kg/m2 04778.01 g ALESIA Poe [facility] Qian Xiao'er 06/21/2024 09:44:18 Date Recorded Body height Body mass index (BMI) Body weight Provider Name and Address Organization Details Last Updated DateTime 07/07/2024 157.48 cm 23.8 kg/m2 34075.01 g Nayeli Bragg CNA [facility] 07/07/2024 10:10:36 Social History Question Answer Notes LastModified by Organizat ion Details LastModified Time Tobacco Smoking Status Never Smoker Yary Ervin RN [facility], [facility] [employer] [facility] 05/13/2024 12:42:57 What Is Your Level Of Caffeine Consumption? [...] Was Ill? No Information not available 05/13/2024 What Type Of [...] Social Media? Yes Information not available 05/13/2024 Have You Recently Traveled Abroad? No Information not available 05/13/2024 Sex: Unknown Functional Status Question Answer Note LastModified by Organization D etails LastModified Time What is your level of alcohol consumption? None Information not available 05/13/2024 Are you currently employed? Yes Information not available 05/13/2024 Mental Status Question Answer Note LastModified by Organization D etails LastModified Time Do you feel stressed (tense, restless, nervous, or anxious, or unable to sleep at night)? [id number] Information not available 05/13/2024 Family History Relationship Description Onset Age of this Age Resolved Age Notes LastModified by Organization Details LastModified Time Father Heart disease Not available 2023 15:26:16 Father Family history of stroke [email or web address] Not available 2023 15:26:28 Father History of malignant neoplasm [email or web address] Not available 2023 15:26:48 Father Hypertensive disorder [email or web address] Not available 2023 15:26:58 Daughter Diabetes mellitus [email or web address] Not available 2023 15:27:06 Medical History Condition Response HEART ARRHYTHMIA Y Gynecological HistoryNo gynecological history recorded. Obstetrics History GPAL:G 0 P 0 0 0 0 Immunizations Vaccine Type Date Status Note Provider Nam e and Address Organization Details Recorded Time SARS-COV-2 (COVID-19) vaccine, UNSPECIFIED 09/06/2020 completed Yary Ervin RN [facility], [facility] [employer] [facility] 05/13/2024 12:37:15 Past Encounters Encounter ID Performer Location Encounter Start Date Encounter Closed Date Diagnosis/Indication Diagnosis SNOMED-CT Code Diagnosis ICD10 Code Diagnosis Note [id number] Vanessa Mccoy MD [facility] [place] [address] [place] [address] 04/30/2021 00:00:00 05/01/2021 08:39:54 [id number] Vanessa Mccoy MD [facility] [place] [address] [place] [address] 05/29/2021 00:00:00 05/29/2021 22:12:19 [id number] Vanessa Mccoy MD [facility] [place] [address] [place] [address] 08/01/2021 00:00:00 08/01/2021 19:27:29 [id number] Vanessa Mccoy MD [facility] [place] [address] [place] [address] 12/07/2021 00:00:00 12/07/2021 19:01:12 [id number] Vanessa Mccoy MD [facility] [place] [address] [place] [address] 12/28/2021 00:00:00 12/28/2021 18:38:23 [id number] Vanessa Mccoy MD [facility] [place] [address] [place] [address] 03/25/2022 00:00:00 03/25/2022 20:38:31 [id number] Vanessa Mccoy MD [facility] [place] [address] [place] [address] 04/29/2022 00:00:00 04/30/2022 14:15:27 [id number] Vanessa Mccoy MD [facility] [facility] [address] [place] [address] [place] [address] 07/09/2022 14:07:35 07/09/2022 15:11:21 Acute sinusitis 06367725 J01.90 Hot packs and NSAIDs. Airborne and MVI Diarrhea 86761741 R19.7 SxRx Drink Gatorade stay hydrated. [id number] Vanessa Mccoy MD [facility] [place] [address] [place] [address] [place] [address] 02/13/2023 16:12:06 02/13/2023 16:40:03 Cervical radiculopathy 04472561 M54.12 ibuprofen to use heat and biofreeze. Note written for weight restrictio n of 10#s at work x 1 month. F/u in 1 month Carpal gloria otis syndrome of right wrist 5733970427 25343 G56.01 Use wrist splint. Ice/heat [id number] Vanessa Mccoy MD [facility] [place] [address] [place] [address] [place] [address] 05/30/2023 09:37:45 05/30/2023 10:07:47 Cervical radiculopathy 76112431 M54.12 Foot pain 67346507 M79.6 72 Overweight 064724059 E66 .3 Anxiety 83816988 F41.9 [id number] Vanessa Mccoy MD [facility] [place] [address] [place] [address] [place] [address] 07/01/2023 15:48:28 07/16/2023 13:40:41 Neck pain 96199361 M54.2 [id number] Vanessa Mccoy MD [facility] [place] [address] [facility] [place] [address] 07/11/2023 11:33:57 07/11/2023 12:06:37 Anxiety 42319466 F41.9 Cervical radiculopathy 57971758 M54.12 Interverte bral disc prolapse 98306221 M51.9 cervical Neck pain 93470127 M54.2 [id number] Constantino Fleming MD [facility] [place] [address] [place] [address] [place] [address] 07/18/2023 12:32:38 07/18/2023 13:00:37 Neck pain 97380423 M54.2 Cervical radiculopathy 82229984 M54.12 Interverte bral disc prolapse 10778683 M51.9 cervical Anxiety 95357580 F41.9 [id number] Constantino Fleming MD [facility] [place] [address] [place] [address] [place] [address] 12/01/2023 11:33:52 12/01/2023 12:03:50 Generalized acute body pains 531711525 R52 Upper resp iratory infection 46108465 J06.9 Cervical radiculopathy 55512315 M54.12 Acute sinusitis 98016096 J01.90 Anxiety 94671019 F41.9 Carpal gloria otis syndrome of right wrist 5556713616 40448 G56.01 Interverte bral disc prolapse 68804742 M51.9 cervical [id number] Slick Abdi MD [facility] [place] [address] [place] [address] 01/21/2024 14:48:43 01/21/2024 16:01:34 Pain of right ankle joint 4912633771 1030284 M25.132 [id number] Slick Abdi MD [facility] [place] [address] [place] [address] 02/11/2024 13:39:07 02/11/2024 14:23:55 Pain of right ankle joint 5461674761 1293359 M25.920 [id number] Slick Abdi MD [facility] [place] [address] [place] [address] 02/25/2024 15:25:25 02/25/2024 15:43:51 Pain of right ankle joint 2565658225 2437323 M25.856 [id number] Constantino Fleming MD [address] [address] 03/15/2024 15:07:34 03/15/2024 16:17:32 Foot pain 20161721 M79.672 left Closed fra cture of right fibula 3171983483 0580808 S82.401A Cervical radiculopathy 34361589 M54.12 Pain of joint 83360943 M 25.50 Eczema 76540671 L30.9 Anxiety 95859520 F41.9 Overweight 753487795 E66 .3 [id number] Constantino Fleming MD [address] [address] 04/20/2024 15:32:02 04/20/2024 16:28:17 Cervical radiculopathy 53848183 M54.12 Pain of ri ght ankle joint 4655266633 1684628 M25.571 Generalize d acute body pains 645720020 R52 Interverte bral disc prolapse 55311565 M51.9 cervical [id number] Constantino Fleming MD [address] [address] 05/13/2024 12:28:36 05/13/2024 13:52:30 Cough 00032030 R05.9 Will discuss over the phone after XR results [id number] Constantino Fleming MD [address] [address] 05/18/2024 14:54:47 05/18/2024 15:26:39 Skin lesion 09830627 L98.9 Interverte bral disc prolapse 65448614 M51.9 cervical [id number] Slick Abdi MD [facility] [address] [place] [address] 06/21/2024 09:39:51 06/21/2024 10:14:51 Pain of right ankle joint 5301039922 7843376 M25.296 [id number] Slick Abdi MD [facility] [place] [address] [facility] [address] [place] [address] 07/07/2024 10:06:32 07/07/2024 10:33:05 Pain of right ankle joint 7155156749 8573078 M25.571 Health Concerns Section Related Observation LastModified by Organization Detai ls LastModified Time None Recorded Concern Status LastModified by Organization Details LastModified Time None Recorded Advance Directives Directive None Recorded Payers Encounter Date Sequence Insurance Name Policy Number Policy Lambert Covered Member ID Lambert Member ID Guarantor Name 04/20/2024 1 [facility] [id number] Virginia Pinto [id number] Virginia Pinto 05/13/2024 1 R [id number] Virginia Pinto [id number] Virginia Pinto 05/18/2024 1 R [id number] Virginia Pinto [id number] Virginia Pinto 06/21/2024 [employer] Virginia Pinto 07/07/2024 [employer] Virgiina Pinto Notes Date Note Type Note Provider Name and Address Organization Details Recorded Time 04/20/2024 text/html right lower leg hurts still; sore all over SHEILA Ruiz [address] [facility] [address], [place], [address], [facility] [employer] 04/26/2024 15:22:08 05/13/2024 text/html Virginia Pinto is [...] infections 2 months ago. IN[employer] [address], [place], [address], [employer] 05/13/2024 17:25:32 05/18/2024 text/html has that rash around her mouth , ED had given her Acyclovir , which cleared it right up . can go back to work today , still has a cough , but feels so much better. has never gone to pain management for the bulging discs . SHEILA Ruiz [address], [place], [address], [employer] 05/21/2024 21:52:02 OBGyn Episode No OBEpisode recorded.
[2024-09-22 16:12] VITALS: BP 134/84; PULSE 83; RESP 20; O2SAT 100
[2024-09-22] MEDS: SODIUM CHLORIDE 0.9% IV 1,000 ML 999 ML IV CONT (16:24)
[2024-09-22] MEDS: ONDANSETRON INJ 4 MG/2 ML VIAL IV PUSH (16:25)
[2024-09-22] MEDS: MECLIZINE HCL 25 MG TABLET PO (16:36)
[2024-09-22 16:37] LABS: Basophils Absolute Auto 0.1 K/mm3 (0.0-0.1); Basophils Percent Auto 0.6 % (0.2-1.2); Eosinophils Absolute Auto 0.2 K/mm3 (0-0.3); Eosinophils Percent Auto 1.9 % (0-4.4); Hematocrit 42.9 % (37.0-47.0); Hemoglobin 14.3 g/dL (12.0-15.0); Immature Granulocyte Absolute 0.02 K/mm3 (0.00-0.031); Immature Granulocyte Percent A 0.2 % (0-0.5); Lymphocytes Percent Auto 22.4 % (18.3-44.2); Mean Corpuscular HGB Conc 33.3 g/dl (32-36); Mean Corpuscular Hemoglobin 30.7 pg (26-34); Mean Corpuscular Volume 92.1 fl (80-100); Mean Platelet Volume 10.2 fl (7.4-10.4); Monocytes Absolute Auto 0.7 K/mm3 (0.1-0.6); Monocytes Percent Auto 6.6 % (2.6-8.5); Neutrophils Absolute Auto 6.7 K/mm3 (1.3-6.7); Neutrophils Percent Auto 68.3 % (45.5-73.1); Platelet Count Result 285 k/mm3 (150-375); Red Blood Count 4.66 M/mm3 (4.2-5.4); Red Cell Distribution Width 11.5 % (11.5-14.5); White Blood Count 9.8 K/mm3 (4.5-10.0)
[2024-09-22 16:57] LABS: Alanine Aminotransferase 13 U/L (6-35); Albumin Level 4.3 g/dL (3.5-5.1); Alkaline Phosphatase 52 U/L (38-126); Anion Gap 7 mmol/L (4-12); Aspartate Amino Transferase 20 U/L (14-36); Bilirubin,Total 0.3 mg/dL (0.2-1.3); Blood Urea Nitrogen 15 mg/dL (7-17); Calcium 9.3 mg/dL (8.4-10.2); Carbon Dioxide 26 mmol/L (22-30); Chloride 106 mmol/L (98-107); Estimated CRCL calculation 59 ml/min; Estimated Glomerular Filt Rate > 60; Glucose 98 mg/dL (65-110); Lipase 91 U/L (23-300); Potassium 3.8 mmol/L (3.4-5.0); Sodium 139 mmol/L (137-145)
--- NOTE | 2024-09-22 17:03 | ED.GENADULT ---
HPI - General Adult General Chief complaint: Nausea/Vomiting/Diarrhea Stated complaint: n/v, headache 9 days Time Seen by Provider: 09/22/24 15:57 History of Present Illness HPI narrative: Patient is a 59-year-old female who presents ER with nausea vomiting. Ongoing over the last week. She has dizziness and feels like she is off balance. It is worse when she lays down or sits up or rolls on her side. She will have spontaneous sweats. No numbness or tingling in arm or leg. No improvement with ibuprofen. Related Data Home Medications ?Medication ?Instructions ?Recorded ?Confirmed ?Last Taken ?Type alprazolam 1 mg tablet 1 mg DAILY 11/28/19 11/28/19 Unknown History phentermine 37.5 mg tablet 37.5 mg DAILY 11/28/19 11/28/19 Unknown History Allergies Allergy/AdvReac Type Severity Reaction Status Date / Time No Known Allergies Allergy Unknown NONE Verified 02/18/24 07:06 Review of Systems Review of Systems: All systems reviewed & are unremarkable except as noted in HPI and below Constitutional: Constitutional: Reports no additional constitutional complaints Cardiovascular: Cardiovascular: Reports no additional cardiovascular complaints Respiratory: Respiratory: Reports no additional respiratory complaints Gastrointestinal: Gastrointestinal: Reports no additional gastrointestinal complaints [facility] Past Medical History Medical History (Updated 09/22/24 @ 17:44 by Venancio Obrien MD) History of anxiety Social History Social History (Updated 04/12/24 @ 18:51 by Ximena Pierce PA-C) Substance use: never Gender identity (if verbalized by the patient): Female Exam Narrative: GENERAL: Well-appearing, well-nourished, and in no acute distress. HEAD: Normocephalic, atraumatic. Eyes: EOMI, left gaze nystagmus worsened night, pleural ENT: Mucous membranes moist. CHEST: Clear to auscultation. No respiratory distress. HEART: Regular rate and rhythm. Normal peripheral pulses. ABDOMEN: Soft, nontender, nondistended. EXTREMITIES: Normal range of motion. No edema. SKIN: Warm, dry, no rash. NEURO: Alert and oriented x3. PSYCH: Normal mood and affect. Course Course Emergency Course: Patient resting comfortably. Improved with meclizine/Toradol morphine. Discussed imaging and lab results. Appropriate for discharge home. Vital Signs Vital signs: Vital Signs Temperature 98.2 F 09/22/24 13:38 Pulse Rate 95 09/22/24 13:38 Respiratory Rate 16 09/22/24 13:38 Blood Pressure 109/79 09/22/24 13:38 Pulse Oximetry 100 09/22/24 13:38 Temperature 98.2 F 09/22/24 13:38 Pulse Rate 83 09/22/24 16:12 Respiratory Rate 20 09/22/24 16:12 Blood Pressure 134/84 09/22/24 16:12 Pulse Oximetry 100 09/22/24 16:12 Medical Decision Making Vital Signs Vital Signs: Vital Signs Temperature 98.2 F 09/22/24 13:38 Pulse Rate 95 09/22/24 13:38 Respiratory Rate 16 09/22/24 13:38 Blood Pressure 109/79 09/22/24 13:38 Pulse Oximetry 100 09/22/24 13:38 Temperature 98.2 F 09/22/24 13:38 Pulse Rate 83 09/22/24 16:12 Respiratory Rate 20 09/22/24 16:12 Blood Pressure 134/84 09/22/24 16:12 Pulse Oximetry 09/22/24 16:12 Lab Data 09/22/24 16:27 09/22/24 16:27 Labs: Lab Results 09/22/24 09/22/24 09/22/24 Range/Units 16:27 16:27 17:12 WBC 9.8 (4.5-10.0) K/mm3 RBC 4.66 (4.2-5.4) M/mm3 Hgb 14.3 (12.0-15.0) g/dL Hct 42.9 (37.0-47.0) % MCV 92.1 (80-100) fl MCH 30.7 (26-34) pg MCHC 33.3 (32-36) g/dl RDW 11.5 (11.5-14.5) % Plt Count 285 (150-375) k/mm3 MPV 10.2 (7.4-10.4) fl Immature Gran % (Auto) 0.2 (0-0.5) % Neut % (Auto) 68.3 (45.5-73.1) % Lymph % (Auto) 22.4 (18.3-44.2) % [place] % (Auto) 6.6 (2.6-8.5) % Eos % (Auto) 1.9 (0-4.4) % Baso % (Auto) 0.6 (0.2-1.2) % Lymph # (Auto) 2.20 (0.9-3.2) K/mm3 [place] # (Auto) 0.7 H (0.1-0.6) K/mm3 Eos # (Auto) 0.2 (0-0.3) K/mm3 Baso # (Auto) 0.1 (0.0-0.1) K/mm3 Abs Immat Gran (auto) 0.02 (0.00-0.031) K/mm3 Absolute Neuts (auto) 6.7 (1.3-6.7) K/mm3 Absolute Nucleated RBC 0.000 (0.0-0.012) K/mm3 Nucleated RBC % 0.0 (0.0-0.2) % Sodium 139 (137-145) mmol/L Potassium 3.8 (3.4-5.0) mmol/L Chloride 106 (98-107) mmol/L Carbon Dioxide 26 (22-30) mmol/L Anion Gap 7 (4-12) mmol/L BUN 15 (7-17) mg/dL Creatinine 0.71 (0.7-1.0) mg/dL Estim Creat Clear Calc 59 ml/min Estimated GFR > 60 (59 - ) Glucose 98 (65-110) mg/dL Calcium 9.3 (8.4-10.2) mg/dL Total Bilirubin 0.3 (0.2-1.3) mg/dL AST 20 (14-36) U/L ALT 13 (6-35) U/L Alkaline Phosphatase 52 (38-126) U/L Total Protein 7.0 (6.3-8.2) g/dL Albumin 4.3 (3.5-5.1) g/dL Lipase 91 Cancelled (23-300) U/L Urine Color Yellow (Yellow) Urine Appearance Clear (Clear) Urine pH 6.5 (5.0-9.0) Ur Specific Redig 1.017 (1.001-1.035) Urine Protein Negative (Negative) mg/dL Urine Glucose (UA) Negative (Negative) mg/dL Urine Ketones Negative (Negative) mg/dL Ur Blood (Man) Trace (Negative) Urine Nitrate Negative (Negative) Urine Bilirubin Negative (Negative) Urine Urobilinogen 1.0 (<2.0) mg/dL Leukocyte Esterase Rfl Negative (Negative) LYNDSEY/UL Urine RBC 0-2 (0-2) /hpf Urine WBC 0-5 (0-3) /hpf Ur Squamous Epith Cells Occasional (Few) /hpf Urine Bacteria None seen /hpf Urine Casts 0-2 Imaging Data Radiologist's impression: ITS Impressions Head CT 09/22/24 16:34 IMPRESSION: No acute intracranial findings. Discharge Plan Discharge Clinical Impression: Vertigo, Headache Patient Disposition: Home Condition: Stable Instructions: Vertigo (ED) Additional Instructions: Try to stay well hydrated at home. Please return to the emergency department if you develop worsening of your headache or a new headache which is severe, associated with vision changes, associated with neck stiffness or fever, or if it is different from any other headache that you have had before. Return to the emergency department if you develop numbness, weakness or tingling or problems with coordination, or if you develop severe nausea and vomiting and are unable to keep down fluids at home. Patient Language: Macedonian Prescriptions: New meclizine 25 mg tablet 12.5 - 25 mg PO BID PRN (Reason: dizziness) Qty: 20 0RF naproxen 375 mg tablet 375 mg PO BID Qty: 14 0RF No Action alprazolam 1 mg tablet 1 mg DAILY phentermine 37.5 mg tablet 37.5 mg DAILY meloxicam 7.5 mg tablet 7.5 mg PO BID PRN (Reason: pain) Qty: 14 0RF methocarbamol 500 mg tablet 500 mg PO TID PRN (Reason: pain) Qty: 20 0RF sulfacetamide sodium [Bleph-10] 10 % drops 2 drp EACH EYE Q4H Qty: 5 0RF codeine-guaifenesin 10-100 mg/5 mL liquid 7.5 ml PO Q6H PRN (Reason: cough) Qty: 118 0RF cyclobenzaprine 10 mg tablet 10 mg PO TID PRN (Reason: muscle spasm) Qty: 14 0RF prednisone 20 mg tablet 40 mg PO DAILY 5 Days Qty: 10 0RF famotidine 20 mg tablet 20 mg PO DAILY Qty: 30 0RF ondansetron 4 mg tablet,disintegrating 4 mg PO Q8H PRN (Reason: nausea and vomiting) Qty: 10 0RF Follow-up/Referrals: Anahy Malone DO [Physician] - 1 Week UNKNOWN,DOCTOR [Primary Care Provider] -
[2024-09-22] MEDS: KETOROLAC 30 MG/ML VIAL (*BKC) IV PUSH (17:32)
[2024-09-22] MEDS: MORPHINE SULFATE (*CRX) 2 MG/ML INJ IV PUSH (17:35)
--- OUTSIDE RECORDS SUMMARY | 2024-09-22 18:04 | XMS_ITS | CONTINUITY OF CARE DOCUMENT ---
Author Name susanajoniviktoriya Address Unknown Organization [facility] Address [address] [place] [address] Phone [phone] Care Team Providers Care Electrical Power Engineer Name Role Phone Wale HERNANDEZ, [facility] Unavailable [phone] PAMELA CROSS MD Unavailable PAMELA CROSS MD Unavailable [phone] INS[employer]ANCE PROVID[employer] Payer name Policy type / Coverage type [place] red democrat ID CIGNA\[facility] [employer] insurance [employer] [id number]
--- OUTSIDE RECORDS SUMMARY | 2024-09-22 18:04 | XMS_ITS | Clinical Summary ---
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
--- OUTSIDE RECORDS SUMMARY | 2024-09-22 18:04 | XMS_ITS | Encounter Summary ---
Author Organization [facility] Address [address] [place] [address] Care Team Providers Care Network Coordinator Name Role Phone Vanessa Mccoy MD Primary Care Provider [phone] Encounter Details Date Type Department Care Team (Late st Contact Info) Description 02/08/2019 Telephone [facility] [address] [place] [address] Slick Amanda, DO [address] [facility] [address] [place] [id number] Social History Tobacco Use Types Packs/Day Years Used Date Smoking Tobacco: Never Smokeless Tobacco: Never Alcohol Use Standard Drinks/Week Comments Yes 2 (1 standard drink = 0.6 oz pur e alcohol) Comments No Sex and Gender Information Value Date Recorded Sex Assigned at Not on file 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
--- OUTSIDE RECORDS SUMMARY | 2024-09-22 18:04 | XMS_ITS | Encounter Summary ---
Author Organization [facility] Address [address] [place] [address] Care Team Providers Care H[employer]ies [employer] Sales Representative Name Role Phone Vanessa Mccoy MD Primary Care Provider [phone] Reason for Visit * Reason Onset Date Comments MEDICATION REFILL 06/13/2018 Encounter Details Date Type Department Care Team (Late st Contact Info) Description 06/13/2018 Refill [facility] [facility] [place] [address] Slick Amanda, [address] [facility] [address] [place] [address] MEDICATION REFILL Social History Tobacco Use Types Packs/Day Years Used Date Smoking Tobacco: Never Smokeless Tobacco: Never Alcohol Use Standard Drinks/Week Comments Yes 2 (1 standard drink = 0.6 oz pur e alcohol) Comments No Sex and Gender Information Value Date Recorded Sex Assigned at Not on file 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
--- OUTSIDE RECORDS SUMMARY | 2024-09-22 18:04 | XMS_ITS | Clinical Summary ---
Author Organization [facility] Address [address] [place] [address] Care Team Providers Care Senior Dentist Name Role Phone Vanessa Mccoy MD Primary Care Provider [phone] Source Comments [facility],non-owned Affiliates and Associated Physician Practices is amultiple site organization consisting of ambulatory clinics and hospital sitesin [place], [place], [place] and [place]. This disclosure is being madepursuant to the Care Everywhere program and may not contain all information available regarding this patient. 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 Gender Identity Not on file Sexual Orientation [...] this topic Medical Devices Explanted Type Area Driller And Reamer Device Identifier Shelf Expiration Date Model / Serial / Lot Explanted Hardware- 10 Screws, 2 Plates, 1 Washer Explanted:Qty: 1 on 05/21/2018 by Slick Amanda DO at [facility] Left: Foot N/A / / Description:Explanted- 10 sc rews, 2 plates, 1 washer Insurance [facility] Advance Directives * Full Code (Latest Code Status on File) Date Activated Date Inactivated Comments 05/21/2018 7:10 AM 05/21/2018 9:16 PM Care Teams Senior Dentist Relationship Specialty Start Date End Date Vanessa Mccoy MD [address] [place] [address] [address] [place] [address] PCP - General Family Medicine 08/09/15
--- OUTSIDE RECORDS SUMMARY | 2024-09-22 18:04 | XMS_ITS | Encounter Summary ---
Author Organization [facility] Address [address] [facility] [place] [address] Care Team Providers Care Weaver [employer] Name Role Phone Vanessa Mccoy MD Primary Care Provider [phone] Reason for Visit * Reason Onset Date Comments MEDICATION REFILL 06/15/2018 Encounter Details Date Type Department Care Team (Late st Contact Info) Description 06/15/2018 Refill [facility] [facility] [place] [address] Slick Amanda, [facility] [facility] [address] [place] [address] MEDICATION REFILL Social History Tobacco Use Types Packs/Day Years Used Date Smoking Tobacco: Never Smokeless Tobacco: Never Alcohol Use Standard Drinks/Week Comments Yes 2 (1 standard drink = 0.6 oz pur e alcohol) Comments No Sex and Gender Information Value Date Recorded Sex Assigned at Not on file 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
[2024-09-22 18:10] LABS: Add Urine Microscopic? YES; Appearance Urine Clear (Clear); Bilirubin Urine Negative (Negative); Color Urine Yellow (Yellow); Glucose Urine UA Negative (Negative); Ketones Urine Negative (Negative); Leukocyte Esterase Ur Negative LEU/UL (Negative); Nitrate Urine Negative (Negative); Protein Urine Negative (Negative); pH Urine 6.5 (5.0-9.0)
[2024-09-22 18:17] LABS: Bacteria Urine None Seen /hpf; Blood Urine Trace (Negative); Non Pathogenic Casts 0-2; RBC Urine 0-2 /hpf (0-2); Specific Grav Ur 1.017 (1.001-1.035); Squamous Epithelial Cell Urine Occasional /hpf (Few); WBC Urine 0-5 /hpf (0-3)
== END 2024-09-22 18:57 | disposition home or self-care (01) ==
PROVIDERS: Emergency Provider Emergency Medicine
DX: R51.9 Headache, unspecified (principal); R42 Dizziness and giddiness; F41.9 Anxiety disorder, unspecified
CPT/HCPCS: 36415; 70450; 80053; 81001; 83690; 85025; 96361; 96374; 96375; 99284; A9270; J1885; J2270; J2405; J7030